=== PATIENT | male | born 1930 | race Caucasian/White ===

== ENCOUNTER 2020-11-26 13:09 | Inpatient (IN) | payer MEDICARE, BC ==
[2020-11-26] MEDS: Sodium Chloride 0.9% 1,000 ML IV SCH (13:15)
[2020-11-26] MEDS ORDERED: Sodium Chloride 0.9% 10 ML Syringe FLUSH PRN (16:51)
--- NOTE | 2020-11-26 19:23 | HP ---
This is an admission history and physical as well as emergency room note. REASON FOR ADMISSION: Frequent falls and deconditioning. HISTORY: This 89-year-old man was brought in by ambulance after having suffered a number of falls over the last 2 days. The patient's history was largely obtained with the assistance of his granddaughter with whom he lives. The patient has significant dementia according to the granddaughter and has been living with the granddaughter and her for quite some time. Evidently over the past several months, he has had increasingly frequent episodes of falling at home, fortunately never sustaining any significant or serious injuries. Recently, however, this seems to have increased somewhat. Two days ago, he suffered a falling incident at home that was witnessed by his granddaughter's and a second similar incident when he was ambulating to the bathroom. There were no apparent injuries at that time, although he spent most of the day lying around with no appetite. This morning shortly after awakening, he was getting dressed and he suffered another fall sustaining a blow to his right eye area and his right hip area. He does have a history of chronic hip pain and it does not seem to be any worse now than it was before the fall. He did not lose any consciousness and denied any pain anywhere else. In fact, but the time he was brought into the emergency room, he was not complaining of any discomfort at all. He has not had any fever or chills. He has not had any increased cough, shortness of breath. Denies any recent episodes of chest pain or abdominal pain, although over the past couple of days, he has had a diminished appetite. There have been no urinary problems with him as of late as well. With regard to his dementia, he has had this for a couple of years at least and has complained on a number of occasions that he just wants to be "let go," etc. The patient does not have any advance directives, but on discussing this with his daughter, she is confident that he would want to be designated as a DNI/DNR status. PAST MEDICAL HISTORY: 1. Pacemaker but no history of [place] that the granddaughter is aware of. 2. History of colon cancer resected 5 to 6 years ago. No known metastasis. 3. History of asthma. He does have inhalers but never uses them. 4. Parkinson disease, which is reasonably well controlled. 5. Hypertension. REVIEW OF SYSTEMS: Pertinent positives and negatives as listed in the HPI. HABITS: He used to drink but no longer drinks alcohol. He has no smoking history. MEDICATIONS: Reviewed. Please see EMR for documentation. PHYSICAL EXAMINATION: He responds reasonably appropriately and there are no complaints of pain at this time. VITAL SIGNS: See EMR. HEENT: He does have periorbital ecchymosis on the right side. There is no subconjunctival hemorrhage. There is no bony crepitus. His periorbital bones appear to be intact. There is no tenderness or bony crepitus in any of his facial bones. His occlusion appears normal. Pupils are equally round, reactive to light. Oropharynx, he has very poor oral dentition. It is not particularly dry. NECK: Supple. No JVD is noted. No tenderness. No crepitus. CHEST: Clear to auscultation with good air exchange bilaterally. No rhonchi, rales, or wheezes. CARDIAC: Regular rate without murmur. ABDOMEN: Obese. He has some ecchymoses that seem to be old around his periumbilical area. This could be due to recent falls. ABDOMEN: Soft and nontender. No hepatosplenomegaly. No palpable masses. I cannot definitely detect a fluid wave or any signs of ascites. EXTREMITIES: He has normal range of motion with no deformities. There is no external evidence of trauma. His foot pulses are absent, but his feet are pink and warm. He does have popliteal pulses. NEUROLOGIC: He follows directions. Deep tendon reflexes were not tested. Cranial nerves 2 through 12 appear to be intact. LABORATORY RESULTS: CBC indicates he has a hemoglobin of 13.9 with a WBC of 4.7. CMP reveals no electrolyte abnormalities. His creatinine is elevated at 1.35 with a BUN of 23. His estimated GFR is 50. His glucose is 110 (nonfasting). His AST is mildly elevated at 59, but his ALT is normal as is his alkaline phosphatase and total bilirubin. Urinalysis suggests dehydration with a specific gravity of 1.030. He does have proteinuria and some ketones in his urine, probably due to fasting. Microscopic UA is pending at this time. Chest x-ray shows no cardiomegaly, no active pulmonary disease. IMPRESSION: 1. Probably generalized weakness due to his age and overall debility complicated by his Parkinson disease and deconditioning. 2. Mild dehydration. 3. Rule out urosepsis. Complete UA pending at this time. PLAN: A long discussion was undertaken with his granddaughter who is his caregiver and it was probably in my opinion, most sensible to admit him to the hospital with comfort measures and treat any UTI if that should materialize on his UA. Otherwise, the main focus will be to find a more suitable housing arrangement for him as it is obvious that this is becoming difficult for them to care for him in their home. We will ask [employer] to assist us in finding appropriate placement. All questions were answered. She understands and agrees to this plan. URBAN/GABY
[2020-11-26] MEDS: Lisinopril 5 MG Tab PO SCH (19:30)
[2020-11-26] MEDS ORDERED: Haloperidol Lactate 5 MG/ML SDV ONE (20:13)
[2020-11-26] MEDS ORDERED: Haloperidol Lactate 5 MG/ML SDV IM ONE (20:13)
[2020-11-27] MEDS: Donepezil 5 MG Tab PO SCH ×2 (07:19→22:23)
[2020-11-27] MEDS: Carbidopa/Levodopa 50-200 MG Tab.ER PO SCH ×3 (07:20→22:23)
[2020-11-27] MEDS: Pantoprazole 40 MG Delayed-Release Granules 1 Packet PO SCH ×2 (07:21→22:24)
[2020-11-27] MEDS: Lisinopril 5 MG Tab PO SCH (08:18)
[2020-11-27] MEDS: Potassium Chloride 10 MEQ Tab.ER PO SCH (08:18)
[2020-11-27] MEDS: Citalopram 20 MG Tab PO SCH (08:19)
[2020-11-27] MEDS ORDERED: Lisinopril 10 MG Tab ONE (08:55)
--- NOTE | 2020-11-27 08:57 | PCM.PN ---
- General Info Date of Service: 11/29/20 - Patient Data Vitals - Most Recent: Last Vital Signs Temp 99.2 F 11/26/20 16:19 Pulse 81 11/27/20 00:00 Resp 17 11/27/20 00:00 BP 155/67 H 11/27/20 08:18 Pulse Ox 96 11/27/20 00:00 Weight - Most Recent: 176 lb I&O - Last 24 Hours: Intake & Output 11/26/20 11/27/20 11/27/20 22:59 06:59 14:59 Intake Total 20 Output Total 15 Balance 5 Lab Results Last 24 Hours: Laboratory Results - last 24 hr 11/26/20 11/26/20 11/26/20 Range/Units 14:40 14:40 14:45 WBC 4.7 (4.0-11.0) K/uL RBC 4.00 L (4.50-6.50) M/uL Hgb 13.9 (13.0-18.0) g/dL Hct 41.4 (40.0-54.0) % MCV 104 H (76-96) fL MCH 34.8 H (27.0-32.0) pg MCHC 33.6 (31.0-35.0) g/dL RDW 13.8 (11.0-16.0) % Plt Count 117 L (150-400) K/uL MPV 10.4 H (6.0-10.0) fL Neut % (Auto) 72.2 H (45.0-70.0) % Lymph % (Auto) 10.0 L (20.0-40.0) % Levy % (Auto) 17.0 H (3.0-10.0) % Eos % (Auto) 0.2 L (1.0-5.0) % Baso % (Auto) 0.6 H (0.0-0.5) % Neut # (Auto) 3.40 (2.00-7.50) K/uL Lymph # (Auto) 0.47 L (1.50-4.00) K/uL Levy # (Auto) 0.80 (0.20-0.80) K/uL Eos # (Auto) 0.01 L (0.04-0.40) K/uL Baso # (Auto) 0.03 (0.02-0.10) K/uL Sodium 138 (136-145) mmol/L Potassium 4.0 (3.5-5.1) mmol/L Chloride 104 (98-107) mmol/L Carbon Dioxide 27.8 (21.0-32.0) mmol/L Anion Gap 10.2 (5.0-15.0) mmol/L BUN 23 (8-26) mg/dL Creatinine 1.35 H (0.70-1.30) mg/dL Est Cr Clr Drug Dosing TNP Estimated GFR (MDRD) 50 L (>60) MLS/MIN BUN/Creatinine Ratio 17.0 (6-25) Glucose 110 H (74-100) mg/dL Calcium 8.9 (8.5-10.1) mg/dL Total Bilirubin 0.6 (0.0-1.0) mg/dL AST 59 H (15-37) U/L ALT 39 (12-78) U/L Alkaline Phosphatase 67 (46-116) U/L Total Protein 6.8 (6.4-8.2) g/dL Albumin 3.3 L (3.4-5.0) g/dL Globulin 3.5 (2.2-4.2) g/dL Albumin/Globulin Ratio 0.9 (0.8-2.0) Urine Color Urine Appearance (CLEAR) Urine pH (5.0-8.0) Ur Specific [place] (1.003-1.030) Urine Protein (NEGATIVE) mg/dL Urine Glucose (UA) (NEGATIVE) mg/dL Urine Ketones (NEGATIVE) mg/dL Urine Occult Blood (NEGATIVE) Urine Nitrite (NEGATIVE) Urine Bilirubin (NEGATIVE) Urine Urobilinogen (0.2-1.0) E.U./dL Ur Leukocyte Esterase (NEGATIVE) U Hyaline Cast (Auto) /HPF Urine RBC /HPF Urine WBC /HPF Ur Epithelial Cells /HPF Fine Granular Casts /HPF SARS-CoV-2 RNA ([place]) Positive H (NEGATIVE) 11/26/20 Range/Units 15:14 WBC (4.0-11.0) K/uL RBC (4.50-6.50) M/uL Hgb (13.0-18.0) g/dL Hct (40.0-54.0) % MCV (76-96) fL MCH (27.0-32.0) pg MCHC (31.0-35.0) g/dL RDW (11.0-16.0) % Plt Count (150-400) K/uL MPV (6.0-10.0) fL Neut % (Auto) (45.0-70.0) % Lymph % (Auto) (20.0-40.0) % Levy % (Auto) (3.0-10.0) % Eos % (Auto) (1.0-5.0) % Baso % (Auto) (0.0-0.5) % Neut # (Auto) (2.00-7.50) K/uL Lymph # (Auto) (1.50-4.00) K/uL Levy # (Auto) (0.20-0.80) K/uL Eos # (Auto) (0.04-0.40) K/uL Baso # (Auto) (0.02-0.10) K/uL Sodium (136-145) mmol/L Potassium (3.5-5.1) mmol/L Chloride (98-107) mmol/L Carbon Dioxide (21.0-32.0) mmol/L Anion Gap (5.0-15.0) mmol/L BUN (8-26) mg/dL Creatinine (0.70-1.30) mg/dL Est Cr Clr Drug Dosing Estimated GFR (MDRD) (>60) MLS/MIN BUN/Creatinine Ratio (6-25) Glucose (74-100) mg/dL Calcium (8.5-10.1) mg/dL Total Bilirubin (0.0-1.0) mg/dL AST (15-37) U/L ALT (12-78) U/L Alkaline Phosphatase (46-116) U/L Total Protein (6.4-8.2) g/dL Albumin (3.4-5.0) g/dL Globulin (2.2-4.2) g/dL Albumin/Globulin Ratio (0.8-2.0) Urine Color Yellow Urine Appearance Slightly cloudy (CLEAR) Urine pH 5.0 (5.0-8.0) Ur Specific [place] >= 1.030 (1.003-1.030) Urine Protein 30 H (NEGATIVE) mg/dL Urine Glucose (UA) Negative (NEGATIVE) mg/dL Urine Ketones 40 H (NEGATIVE) mg/dL Urine Occult Blood Moderate H (NEGATIVE) Urine Nitrite Negative (NEGATIVE) Urine Bilirubin Small H (NEGATIVE) Urine Urobilinogen 0.2 (0.2-1.0) E.U./dL Ur Leukocyte Esterase Negative (NEGATIVE) U Hyaline Cast (Auto) Moderate /HPF Urine RBC 0-5 H /HPF Urine WBC Not seen /HPF Ur Epithelial Cells Moderate /HPF Fine Granular Casts Few H /HPF SARS-CoV-2 RNA ([place]) (NEGATIVE) Med Orders - Current: Current Medications Carbidopa/Levodopa (Carbidopa/Levodopa 50-200 Mg Tab.Er) 1 tab PO BID [facility] Last Admin: 11/27/20 08:19 Dose: 1 tab Documented by: Citalopram Hydrobromide (Citalopram 20 Mg Tab) 40 mg PO DAILY [facility] Last Admin: 11/27/20 08:19 Dose: 40 mg Documented by: Donepezil HCl (Donepezil 5 Mg Tab) 5 mg PO BEDTIME [facility] Last Admin: 11/27/20 07:19 Dose: Not Given Documented by: Sodium Chloride (Normal Saline) 1,000 mls @ 75 mls/hr IV ASDIRECTED [facility] Last Infusion: 11/26/20 19:00 Dose: Infused Documented by: Lisinopril (Lisinopril 5 Mg Tab) 12.5 mg PO DAILY [facility] Last Admin: 11/27/20 08:18 Dose: 12.5 mg Documented by: Pantoprazole Sodium (Pantoprazole 40 Mg Delayed-Release Granules 1 Packet) 40 mg PO Q24H [facility] Last Admin: 11/27/20 07:21 Dose: Not Given Documented by: Potassium Chloride (Potassium Chloride 10 Meq Tab.Er) 10 meq PO DAILY [facility] Last Admin: 11/27/20 08:18 Dose: 10 meq Documented by: Sodium Chloride (Sodium Chloride 0.9% 10 Ml Syringe) 10 ml FLUSH ASDIRECTED PRN PRN Reason: Keep Vein Open Tamsulosin HCl (Tamsulosin 0.4 Mg Cap.Er) 0.4 mg PO PCBREAKFAST [facility] Discontinued Medications Haloperidol Lactate (Haloperidol Lactate 5 Mg/Ml Sdv) Confirm Administered Dose 5 mg .ROUTE .STK-MED ONE Stop: 11/26/20 20:14 Last Admin: 11/26/20 20:15 Dose: 5 mg Documented by: Haloperidol Lactate (Haloperidol Lactate 5 Mg/Ml Sdv) 5 mg IM ONETIME ONE Stop: 11/26/20 20:14 Last Admin: 11/26/20 20:20 Dose: 5 mg Documented by: - Patient Data Lab Results Last 24 hrs: Laboratory Results - last 24 hr 11/26/20 11/26/20 11/26/20 Range/Units 14:40 14:40 14:45 WBC 4.7 (4.0-11.0) K/uL RBC 4.00 L (4.50-6.50) M/uL Hgb 13.9 (13.0-18.0) g/dL Hct 41.4 (40.0-54.0) % MCV 104 H (76-96) fL MCH 34.8 H (27.0-32.0) pg MCHC 33.6 (31.0-35.0) g/dL RDW 13.8 (11.0-16.0) % Plt Count 117 L (150-400) K/uL MPV 10.4 H (6.0-10.0) fL Neut % (Auto) 72.2 H (45.0-70.0) % Lymph % (Auto) 10.0 L (20.0-40.0) % Levy % (Auto) 17.0 H (3.0-10.0) % Eos % (Auto) 0.2 L (1.0-5.0) % Baso % (Auto) 0.6 H (0.0-0.5) % Neut # (Auto) 3.40 (2.00-7.50) K/uL Lymph # (Auto) 0.47 L (1.50-4.00) K/uL Levy # (Auto) 0.80 (0.20-0.80) K/uL Eos # (Auto) 0.01 L (0.04-0.40) K/uL Baso # (Auto) 0.03 (0.02-0.10) K/uL Sodium 138 (136-145) mmol/L Potassium 4.0 (3.5-5.1) mmol/L Chloride 104 (98-107) mmol/L Carbon Dioxide 27.8 (21.0-32.0) mmol/L Anion Gap 10.2 (5.0-15.0) mmol/L BUN 23 (8-26) mg/dL Creatinine 1.35 H (0.70-1.30) mg/dL Est Cr Clr Drug Dosing TNP Estimated GFR (MDRD) 50 L (>60) MLS/MIN BUN/Creatinine Ratio 17.0 (6-25) Glucose 110 H (74-100) mg/dL Calcium 8.9 (8.5-10.1) mg/dL Total Bilirubin 0.6 (0.0-1.0) mg/dL AST 59 H (15-37) U/L ALT 39 (12-78) U/L Alkaline Phosphatase 67 (46-116) U/L Total Protein 6.8 (6.4-8.2) g/dL Albumin 3.3 L (3.4-5.0) g/dL Globulin 3.5 (2.2-4.2) g/dL Albumin/Globulin Ratio 0.9 (0.8-2.0) Urine Color Urine Appearance (CLEAR) Urine pH (5.0-8.0) Ur Specific [place] (1.003-1.030) Urine Protein (NEGATIVE) mg/dL Urine Glucose (UA) (NEGATIVE) mg/dL Urine Ketones (NEGATIVE) mg/dL Urine Occult Blood (NEGATIVE) Urine Nitrite (NEGATIVE) Urine Bilirubin (NEGATIVE) Urine Urobilinogen (0.2-1.0) E.U./dL Ur Leukocyte Esterase (NEGATIVE) U Hyaline Cast (Auto) /HPF Urine RBC /HPF Urine WBC /HPF Ur Epithelial Cells /HPF Fine Granular Casts /HPF SARS-CoV-2 RNA ([place]) Positive H (NEGATIVE) 11/26/20 Range/Units 15:14 WBC (4.0-11.0) K/uL RBC (4.50-6.50) M/uL Hgb (13.0-18.0) g/dL Hct (40.0-54.0) % MCV (76-96) fL MCH (27.0-32.0) pg MCHC (31.0-35.0) g/dL RDW (11.0-16.0) % Plt Count (150-400) K/uL MPV (6.0-10.0) fL Neut % (Auto) (45.0-70.0) % Lymph % (Auto) (20.0-40.0) % Levy % (Auto) (3.0-10.0) % Eos % (Auto) (1.0-5.0) % Baso % (Auto) (0.0-0.5) % Neut # (Auto) (2.00-7.50) K/uL Lymph # (Auto) (1.50-4.00) K/uL Levy # (Auto) (0.20-0.80) K/uL Eos # (Auto) (0.04-0.40) K/uL Baso # (Auto) (0.02-0.10) K/uL Sodium (136-145) mmol/L Potassium (3.5-5.1) mmol/L Chloride (98-107) mmol/L Carbon Dioxide (21.0-32.0) mmol/L Anion Gap (5.0-15.0) mmol/L BUN (8-26) mg/dL Creatinine (0.70-1.30) mg/dL Est Cr Clr Drug Dosing Estimated GFR (MDRD) (>60) MLS/MIN BUN/Creatinine Ratio (6-25) Glucose (74-100) mg/dL Calcium (8.5-10.1) mg/dL Total Bilirubin (0.0-1.0) mg/dL AST (15-37) U/L ALT (12-78) U/L Alkaline Phosphatase (46-116) U/L Total Protein (6.4-8.2) g/dL Albumin (3.4-5.0) g/dL Globulin (2.2-4.2) g/dL Albumin/Globulin Ratio (0.8-2.0) Urine Color Yellow Urine Appearance Slightly cloudy (CLEAR) Urine pH 5.0 (5.0-8.0) Ur Specific [place] >= 1.030 (1.003-1.030) Urine Protein 30 H (NEGATIVE) mg/dL Urine Glucose (UA) Negative (NEGATIVE) mg/dL Urine Ketones 40 H (NEGATIVE) mg/dL Urine Occult Blood Moderate H (NEGATIVE) Urine Nitrite Negative (NEGATIVE) Urine Bilirubin Small H (NEGATIVE) Urine Urobilinogen 0.2 (0.2-1.0) E.U./dL Ur Leukocyte Esterase Negative (NEGATIVE) U Hyaline Cast (Auto) Moderate /HPF Urine RBC 0-5 H /HPF Urine WBC Not seen /HPF Ur Epithelial Cells Moderate /HPF Fine Granular Casts Few H /HPF SARS-CoV-2 RNA ([place]) (NEGATIVE) Result Diagrams: 11/30/20 19:20 11/26/20 14:40 Sepsis Event Note - Evaluation Sepsis Screening Result: No Definite Risk - Focused Exam Vital Signs: Vital Signs Pulse Resp BP BP Pulse Ox 11/27/20 08:18 155/67 H 11/27/20 00:00 81 17 146/87 H 96
[2020-11-27] MEDS: Tamsulosin 0.4 MG Cap.ER PO SCH (09:03)
[2020-11-27] MEDS ORDERED: REMDESIVIR 200 MG in Sodium Chloride 0.9% 250 ML IV ONE (09:35)
--- NOTE | 2020-11-27 09:39 | CR ---
DATE OF SERVICE: 11/26/20 CLINICAL DATA: fall AP CHEST: Comparison is made to a prior exam dated 05/27/12. The patient has taken a poor inspiration. The heart size is normal. The aorta is calcified and ectatic. The lungs are clear. No pneumothorax. No pleural effusions. There is degenerative disc disease throughout the thoracic spine. No evidence of acute intrathoracic disease. [id number] [facility]
--- NOTE | 2020-11-27 12:05 | PN ---
DATE OF VISIT: 11/27/2020 HISTORY OF PRESENT ILLNESS: Mr. Jauregui had a relatively uneventful night. Because of his increased frequent falling episodes and the inability for his granddaughter to continue caring for him, he was admitted to the hospital. In the course of his evaluation, a routine COVID screening was done even though he had no COVID symptoms and this came back positive. He has had a stable night. His blood pressure is stable 155/67, heart rate runs in the 70s and 80s. His O2 sats have ranged between 95 to 96 on room air. His mental status is unchanged from his baseline. He does have dementia. He knows his date. He knows he is in the hospital, but does not know where. He offers no complaints today except that he is anxious to get back home. PHYSICAL EXAMINATION: GENERAL: He has the ecchymoses around his right periorbital area that is unchanged. NEURO: He moves all 4 extremities to command. CHEST: Clear. CARDIAC: Regular rate without murmur. ABDOMEN: Soft. IMPRESSION: 1. Frequent falls. 2. Dementia. 3. Recent COVID-19 positive. PLAN: I am going to go ahead and start him on remdesivir 200 mg IV today and 100 mg IV daily for the next 4 days. We will check his liver enzymes as per protocol. He has had some mild coughing and this has not changed in quite some time. He has not been vaccinated. It should be reiterated that his granddaughter, who has provided his care, has indicated that comfort measures are the main concern for the family and informed us that his status should be DNI/DNR. At the present time, with him testing positive for COVID, and we have begun to get [employer] involved so that we can find a suitable [facility] facility, but his COVID status will hinder us from doing this in a very timely fashion. URBAN/GABY /[id number]
[2020-11-27] MEDS ORDERED: Carbidopa/Levodopa 50-200 MG Tab.ER ONE (21:39)
[2020-11-28] MEDS ORDERED: Acetaminophen 325 MG Tab ONE (00:38)
[2020-11-28] MEDS: Acetaminophen 325 MG Tab PO PRN (00:50)
[2020-11-28] MEDS: Lisinopril 5 MG Tab PO SCH (07:56)
[2020-11-28] MEDS: Carbidopa/Levodopa 50-200 MG Tab.ER PO SCH ×2 (07:56→20:50)
[2020-11-28] MEDS: Potassium Chloride 10 MEQ Tab.ER PO SCH (07:57)
[2020-11-28] MEDS: Citalopram 20 MG Tab PO SCH (07:57)
[2020-11-28] MEDS: Tamsulosin 0.4 MG Cap.ER PO SCH (09:56)
[2020-11-28] MEDS: REMDESIVIR 100 MG in Sodium Chloride 0.9% 100 ML IV SCH (09:57)
--- NOTE | 2020-11-28 12:53 | PN ---
DATE OF VISIT: 11/28/2020 Shad had a very low-grade temperature elevation to 99.5 last night. Otherwise, he remained stable. He was having trouble yesterday, but after he tugged on his Rodrigues catheter, which stirred up some bleeding in his catheter, this required some irrigation, and he has not had any episodes where he has tried to pull out his Rodrigues catheter since. He has the haloperidol ordered on a p.r.n. basis, but has not required any for the last 24 hours or so. He denies any shortness of breath. He does have a mild chronic cough, which does not appear to have changed. He has no GI symptoms and his appetite is good. This will be his third day of remdesivir and he should receive a total of 5 days of remdesivir, which means his last day will be on Friday. I have elected not to start him on dexamethasone because he has no respiratory symptoms. A discussion was undertaken with the nursing staff regarding the need to be forward looking in terms of [facility] placement as the granddaughter and grandson are probably not going to be able to provide adequate safe care for him going forward. URBAN/GABY /[id number]
[2020-11-28] MEDS: Sodium Chloride 0.9% 1,000 ML IV SCH (16:51)
[2020-11-28] MEDS: Donepezil 5 MG Tab PO SCH (20:50)
[2020-11-28] MEDS ORDERED: Haloperidol Lactate 5 MG/ML SDV IM ONE (23:50)
[2020-11-28] MEDS ORDERED: Haloperidol Lactate 5 MG/ML SDV ONE (23:58)
[2020-11-29] MEDS: Pantoprazole 40 MG Delayed-Release Granules 1 Packet PO SCH (06:56)
[2020-11-29] MEDS: Tamsulosin 0.4 MG Cap.ER PO SCH (09:30)
[2020-11-29] MEDS: Lisinopril 5 MG Tab PO SCH (09:31)
[2020-11-29] MEDS: Citalopram 20 MG Tab PO SCH (09:32)
[2020-11-29] MEDS: Potassium Chloride 10 MEQ Tab.ER PO SCH (09:32)
[2020-11-29] MEDS: Carbidopa/Levodopa 50-200 MG Tab.ER PO SCH ×2 (09:32→19:14)
[2020-11-29] MEDS: REMDESIVIR 100 MG in Sodium Chloride 0.9% 100 ML IV SCH (10:04)
--- NOTE | 2020-11-29 12:05 | PN ---
DATE OF VISIT: 11/29/2020 Mr. Jauregui has had an uneventful past 24 hours. His appetite is good. He is afebrile. He is occasionally coughing, but this is about his baseline. This will be day 4 of remdesivir, so he is scheduled to receive one more dose and he will have completed that. His liver enzymes remain unchanged. His AST was 59 when it was started and it is 83 today. His bilirubin is not elevated. His alkaline phosphatase is stable and his ALT is normal. There are no new changes. We are currently in the process of sorting out a detention arrangement for him. URBAN/GABY /[id number]
[2020-11-29] MEDS: Donepezil 5 MG Tab PO SCH (19:14)
[2020-11-29] MEDS: Acetaminophen 325 MG Tab PO PRN (19:15)
[2020-11-30] MEDS: Carbidopa/Levodopa 50-200 MG Tab.ER PO SCH ×2 (08:04→20:33)
[2020-11-30] MEDS: Citalopram 20 MG Tab PO SCH (08:04)
[2020-11-30] MEDS: Pantoprazole 40 MG Tab.CR PO SCH (08:04)
[2020-11-30] MEDS: Lisinopril 5 MG Tab PO SCH (08:04)
[2020-11-30] MEDS: Potassium Chloride 10 MEQ Tab.ER PO SCH (08:05)
[2020-11-30] MEDS: REMDESIVIR 100 MG in Sodium Chloride 0.9% 100 ML IV SCH (11:15)
[2020-11-30] MEDS: Tamsulosin 0.4 MG Cap.ER PO SCH (11:56)
[2020-11-30] MEDS ORDERED: LORazepam 1 MG Tab PO ONE (14:51)
--- NOTE | 2020-11-30 17:12 | PCM.PN ---
- General Info Date of Service: 11/30/20 Admission Dx/Problem (Free Text): Falls, weakness, COVID Subjective Update: This patient remains hospitalized for weakness with a history of falls at home. On arrival he was noted to be COVID positive. He remains in isolation as a result of that although today is his last day of remdesivir. Throughout the day he has done well; however, he is getting somewhat bored and complaining of some minor pain in his back. He states at a couple of times during the day that he was not able to get comfortable. He does have an indwelling Rodrigues that was plac ed for urinary retention and is complaining to the staff that he feels like he has to urinate. His vital signs have been stable today and he has not had a fever. Functional Status: Reports: Pain Controlled - Review of Systems General: Reports: No Symptoms HEENT: Reports: No Symptoms Pulmonary: Reports: No Symptoms Cardiovascular: Reports: No Symptoms Gastrointestinal: Reports: No Symptoms Genitourinary: Reports: Other (Complaining that he needs to urinate) Skin: Reports: No Symptoms Neurological: Reports: No Symptoms - Patient Data Vitals - Most Recent: Last Vital Signs Temp 37.1 C 11/30/20 12:00 Pulse 105 H 11/30/20 08:00 Resp 18 11/30/20 08:00 BP 174/83 H 11/30/20 08:04 Pulse Ox 95 11/30/20 08:00 Weight - Most Recent: 78.018 kg I&O - Last 24 Hours: Intake & Output 11/30/20 11/30/20 11/30/20 06:59 14:59 22:59 Intake Total 120 200 Output Total 375 100 Balance -255 100 Lab Results Last 24 Hours: Laboratory Results - last 24 hr 11/30/20 Range/Units 12:00 Total Bilirubin 0.6 D (0.0-1.0) mg/dL Direct Bilirubin 0.2 (0.0-0.3) mg/dL Indirect Bilirubin 0.4 (<= 0.7) mg/dL AST 88 H (15-37) U/L ALT 7 L (12-78) U/L Alkaline Phosphatase 67 (46-116) U/L Total Protein 6.9 (6.4-8.2) g/dL Albumin 3.4 (3.4-5.0) g/dL Globulin 3.5 (2.2-4.2) g/dL Albumin/Globulin Ratio 1.0 (0.8-2.0) Med Orders - Current: Current Medications Acetaminophen (Acetaminophen 325 Mg Tab) 325 mg PO Q6H PRN PRN Reason: Fever Last Admin: 11/29/20 19:15 Dose: 650 mg Documented by: Carbidopa/Levodopa (Carbidopa/Levodopa 50-200 Mg Tab.Er) 1 tab PO BID [facility] Last Admin: 11/30/20 08:04 Dose: 1 tab Documented by: Citalopram Hydrobromide (Citalopram 20 Mg Tab) 40 mg PO DAILY [facility] Last Admin: 11/30/20 08:04 Dose: 40 mg Documented by: Donepezil HCl (Donepezil 5 Mg Tab) 5 mg PO BEDTIME [facility] Last Admin: 11/29/20 19:14 Dose: 5 mg Documented by: Sodium Chloride (Normal Saline) 1,000 mls @ 75 mls/hr IV ASDIRECTED [facility] Last Infusion: 11/26/20 19:00 Dose: Infused Documented by: Remdesivir 100 mg/ Sodium (Chloride) 100 mls @ 100 mls/hr IV Q24H [facility] Stop: 12/01/20 10:59 Last Admin: 11/30/20 11:15 Dose: 100 mls/hr Documented by: Lisinopril (Lisinopril 5 Mg Tab) 12.5 mg PO DAILY [facility] Last Admin: 11/30/20 08:04 Dose: 12.5 mg Documented by: Oxybutynin Chloride (Oxybutynin 5 Mg Tab.Er) 5 mg PO BEDTIME [facility] Pantoprazole Sodium (Pantoprazole 40 Mg Tab.Cr) 40 mg PO ACBREAKFAST [facility] Last Admin: 11/30/20 08:04 Dose: 40 mg Documented by: Potassium Chloride (Potassium Chloride 10 Meq Tab.Er) 10 meq PO DAILY [facility] Last Admin: 11/30/20 08:05 Dose: 10 meq Documented by: Sodium Chloride (Sodium Chloride 0.9% 10 Ml Syringe) 10 ml FLUSH ASDIRECTED PRN PRN Reason: Keep Vein Open Tamsulosin HCl (Tamsulosin 0.4 Mg Cap.Er) 0.4 mg PO PCBREAKFAST [facility] Last Admin: 11/30/20 11:56 Dose: 0.4 mg Documented by: Discontinued Medications Acetaminophen (Acetaminophen 325 Mg Tab) Confirm Administered Dose 650 mg .ROUTE .STK-MED ONE Stop: 11/28/20 00:39 Last Admin: 11/28/20 03:49 Dose: Not Given Documented by: Carbidopa/Levodopa (Carbidopa/Levodopa 50-200 Mg Tab.Er) Confirm Administered Dose 1 tab .ROUTE .STK-MED ONE Stop: 11/27/20 21:40 Last Admin: 11/27/20 23:19 Dose: Not Given Documented by: Haloperidol Lactate (Haloperidol Lactate 5 Mg/Ml Sdv) Confirm Administered Dose 5 mg .ROUTE .STK-MED ONE Stop: 11/26/20 20:14 Last Admin: 11/26/20 20:15 Dose: 5 mg Documented by: Haloperidol Lactate (Haloperidol Lactate 5 Mg/Ml Sdv) 5 mg IM ONETIME ONE Stop: 11/26/20 20:14 Last Admin: 11/26/20 20:20 Dose: 5 mg Documented by: Haloperidol Lactate (Haloperidol Lactate 5 Mg/Ml Sdv) Confirm Administered Dose 5 mg .ROUTE .STK-MED ONE Stop: 11/28/20 23:59 Last Admin: 11/29/20 04:24 Dose: Not Given Documented by: Haloperidol Lactate (Haloperidol Lactate 5 Mg/Ml Sdv) 5 mg IM ONETIME ONE Stop: 11/28/20 23:51 Last Admin: 11/28/20 23:59 Dose: 5 mg Documented by: Remdesivir 200 mg/ Sodium (Chloride) 250 mls @ 250 mls/hr IV ONETIME ONE Stop: 11/27/20 09:36 Last Admin: 11/27/20 10:55 Dose: 250 mls/hr Documented by: Lisinopril (Lisinopril 10 Mg Tab) Confirm Administered Dose 10 mg .ROUTE .STK- MED ONE Stop: 11/27/20 08:56 Last Admin: 11/27/20 09:03 Dose: Not Given Documented by: Lorazepam (Lorazepam 1 Mg Tab) 1 mg PO ONETIME ONE Stop: 11/30/20 14:52 Last Admin: 11/30/20 15:33 Dose: 1 mg Documented by: Pantoprazole Sodium (Pantoprazole 40 Mg Delayed-Release Granules 1 Packet) 40 mg PO Q24H [facility] Last Admin: 11/29/20 06:56 Dose: Not Given Documented by: - Exam Urinary Catheter Total Time: 2Days 18Hours General: Alert, Oriented, No Acute Distress HEENT: Pupils Equal, Pupils Reactive Neck: Supple Lungs: Clear to Auscultation, Normal Respiratory Effort Cardiovascular: Regular Rate, Regular Rhythm Extremities: Normal Inspection Skin: Warm, Dry Neurological: No New Focal Deficit Psy/Mental Status: Alert - Patient Data Lab Results Last 24 hrs: Laboratory Results - last 24 hr 11/30/20 Range/Units 12:00 Total Bilirubin 0.6 D (0.0-1.0) mg/dL Direct Bilirubin 0.2 (0.0-0.3) mg/dL Indirect Bilirubin 0.4 (<= 0.7) mg/dL AST 88 H (15-37) U/L ALT 7 L (12-78) U/L Alkaline Phosphatase 67 (46-116) U/L Total Protein 6.9 (6.4-8.2) g/dL Albumin 3.4 (3.4-5.0) g/dL Globulin 3.5 (2.2-4.2) g/dL Albumin/Globulin Ratio 1.0 (0.8-2.0) Result Diagrams: 11/26/20 14:40 11/26/20 14:40 Sepsis Event Note - Evaluation Sepsis Screening Result: No Definite Risk - Focused Exam Vital Signs: Vital Signs Temp Pulse Resp BP BP Pulse Ox 11/30/20 12:00 37.1 C 11/30/20 08:04 174/83 H 11/30/20 08:00 37.2 C 105 H 18 174/83 H 95 - Problem List & Annotations (1) Weakness SNOMED Code(s): 41668655 Code(s): R53.1 - WEAKNESS Status: Acute Priority: High Current Visit: Yes - Problem List Review Problem List Initiated/Reviewed/Updated: Yes - My Orders Last 24 Hours: My Active Orders 11/30/20 07:00 Pantoprazole [ProTONIX] 40 mg PO ACBREAKFAST 11/30/20 10:14 Renew/Continue Urinary Catheter [OM.PC] Routine 11/30/20 13:45 Ready for Discharge [RC] PER UNIT ROUTINE 11/30/20 16:41 UA RFX BARBARA AND CULT IF INDIC [URIN] Stat 11/30/20 20:00 Oxybutynin [Oxybutynin ER] 5 mg PO BEDTIME - Assessment Assessment:: Problems 1. Falls 2. Weakness 3.. Covid positive. Plan This patient has continued to do well without respiratory symptoms or requiring respiratory support. He will finish his remdesivir today and will be changed to swing bed status tomorrow. He will have PT and OT ordered in preparation of snf placement. Continue with current plan of care as previously ordered.
[2020-11-30] MEDS ORDERED: Lisinopril 5 MG Tab PO ONE (17:40)
[2020-11-30] MEDS ORDERED: Carbidopa/Levodopa 50-200 MG Tab.ER PO SCH (20:00)
[2020-11-30] MEDS ORDERED: Citalopram 20 MG Tab PO SCH (20:00)
[2020-11-30] MEDS: diphenhydrAMINE 50 MG Cap PO PRN (20:33)
[2020-11-30] MEDS: Donepezil 5 MG Tab PO SCH (20:33)
[2020-11-30] MEDS: Oxybutynin 5 MG Tab.ER PO SCH (20:33)
[2020-11-30] MEDS: Acetaminophen 325 MG Tab PO PRN (20:33)
[2020-12-01] MEDS: Citalopram 20 MG Tab PO SCH (07:32)
[2020-12-01] MEDS: Potassium Chloride 10 MEQ Tab.ER PO SCH (07:33)
[2020-12-01] MEDS: Pantoprazole 40 MG Tab.CR PO SCH (07:33)
[2020-12-01] MEDS: Carbidopa/Levodopa 50-200 MG Tab.ER PO SCH ×2 (07:33→19:49)
[2020-12-01] MEDS: Lisinopril 5 MG Tab PO SCH (08:23)
[2020-12-01] MEDS: REMDESIVIR 100 MG in Sodium Chloride 0.9% 100 ML IV SCH (09:04)
[2020-12-01] MEDS: Tamsulosin 0.4 MG Cap.ER PO SCH (09:19)
--- NOTE | 2020-12-01 10:24 | CR ---
DATE OF SERVICE: 12/01/20 CLINICAL DATA: increased WOB AP CHEST: Comparison is made to a prior exam dated 11/26/20. The heart size is normal. There is calcification in the region of the mitral valve annulus. There is a small hiatal hernia. There is calcification of the aortic arch. There is increased density in the left lung base consistent with basilar atelectasis or infiltrate. Pneumonia should be considered. The right lung remains clear. No pneumothorax. No pleural effusion. [id number] [facility]
--- NOTE | 2020-12-01 11:09 | PCM.PN ---
- General Info Date of Service: 12/01/20 Admission Dx/Problem (Free Text): Falls, weakness, COVID Subjective Update: This patient has not had increasing cough and respiratory symptoms in the past 24 hours including increased secretions. He has not had a fever. He was a bit more disoriented and actively anxious in the past 24 hours as well. His appetite is fair and he is drinking fluids well. He denies pain. Functional Status: Reports: Pain Controlled - Review of Systems General: Reports: Weakness. Denies: Fever HEENT: Reports: No Symptoms Pulmonary: Reports: Cough, Sputum Cardiovascular: Denies: Chest Pain Gastrointestinal: Denies: Abdominal Pain, Diarrhea, Nausea, Vomiting Genitourinary: Reports: Other (Feels the urge to void despite Rodrigues placement) Musculoskeletal: Reports: No Symptoms Skin: Reports: No Symptoms Neurological: Reports: No Symptoms - Patient Data Vitals - Most Recent: Last Vital Signs Temp 36.9 C 12/01/20 07:59 Pulse 95 12/01/20 07:59 Resp 18 12/01/20 03:23 BP 135/66 12/01/20 08:23 Pulse Ox 94 L 12/01/20 07:59 Weight - Most Recent: 78.018 kg I&O - Last 24 Hours: Intake & Output 11/30/20 12/01/20 12/01/20 22:59 06:59 14:59 Intake Total 200 100 Output Total 125 150 Balance -125 50 100 Lab Results Last 24 Hours: Laboratory Results - last 24 hr 11/30/20 11/30/20 11/30/20 Range/Units 12:00 18:50 19:20 WBC 6.2 D (4.0-11.0) K/uL RBC 4.50 (4.50-6.50) M/uL Hgb 15.4 (13.0-18.0) g/dL Hct 46.1 (40.0-54.0) % MCV 102 H (76-96) fL MCH 34.2 H (27.0-32.0) pg MCHC 33.4 (31.0-35.0) g/dL RDW 13.9 (11.0-16.0) % Plt Count 142 L D (150-400) K/uL MPV 10.2 H (6.0-10.0) fL Neut % (Auto) 75.9 H (45.0-70.0) % Lymph % (Auto) 10.9 L (20.0-40.0) % [place] % (Auto) 12.7 H (3.0-10.0) % Eos % (Auto) 0.0 L (1.0-5.0) % Baso % (Auto) 0.5 (0.0-0.5) % Neut # (Auto) 4.68 (2.00-7.50) K/uL Lymph # (Auto) 0.67 L (1.50-4.00) K/uL [place] # (Auto) 0.78 (0.20-0.80) K/uL Eos # (Auto) 0.00 L (0.04-0.40) K/uL Baso # (Auto) 0.03 (0.02-0.10) K/uL Total Bilirubin 0.6 D (0.0-1.0) mg/dL Direct Bilirubin 0.2 (0.0-0.3) mg/dL Indirect Bilirubin 0.4 (<= 0.7) mg/dL AST 88 H (15-37) U/L ALT 7 L (12-78) U/L Alkaline Phosphatase 67 (46-116) U/L Total Protein 6.9 (6.4-8.2) g/dL Albumin 3.4 (3.4-5.0) g/dL Globulin 3.5 (2.2-4.2) g/dL Albumin/Globulin Ratio 1.0 (0.8-2.0) Urine Color Yellow Urine Appearance Cloudy (CLEAR) Urine pH 5.5 (5.0-8.0) Ur Specific [place] >= 1.030 (1.003-1.030) Urine Protein 100 H (NEGATIVE) mg/dL Urine Glucose (UA) Negative (NEGATIVE) mg/dL Urine Ketones 15 H (NEGATIVE) mg/dL Urine Occult Blood Large H (NEGATIVE) Urine Nitrite Negative (NEGATIVE) Urine Bilirubin Negative (NEGATIVE) Urine Urobilinogen 0.2 (0.2-1.0) E.U./dL Ur Leukocyte Esterase Moderate H (NEGATIVE) Urine RBC >100 H /HPF Urine WBC 75-100 H /HPF Ur Squamous Epith Cells Moderate /HPF Amorphous Sediment Moderate /HPF Urine Bacteria Few /HPF Med Orders - Current: Current Medications Acetaminophen (Acetaminophen 325 Mg Tab) 325 mg PO Q6H PRN PRN Reason: Fever Last Admin: 11/30/20 20:33 Dose: 650 mg Documented by: Carbidopa/Levodopa (Carbidopa/Levodopa 50-200 Mg Tab.Er) 1 tab PO BID [facility] Last Admin: 12/01/20 07:33 Dose: 1 tab Documented by: Citalopram Hydrobromide (Citalopram 20 Mg Tab) 40 mg PO DAILY [facility] Last Admin: 12/01/20 07:32 Dose: 40 mg Documented by: Diphenhydramine HCl (Diphenhydramine 50 Mg Cap) 50 mg PO Q6H PRN PRN Reason: Agitation Last Admin: 11/30/20 20:33 Dose: 50 mg Documented by: Donepezil HCl (Donepezil 5 Mg Tab) 5 mg PO BEDTIME [facility] Last Admin: 11/30/20 20:33 Dose: 5 mg Documented by: Sodium Chloride (Normal Saline) 1,000 mls @ 75 mls/hr IV ASDIRECTED [facility] Last Infusion: 11/26/20 19:00 Dose: Infused Documented by: Azithromycin 500 mg/ Sodium (Chloride) 250 mls @ 250 mls/hr IV Q24H [facility] Stop: 12/08/20 12:00 Levofloxacin/Dextrose 750 mg/ (Levofloxacin/Dextrose) 300 mls @ 100 mls/hr IV Q24H [facility] Stop: 12/08/20 12:00 Lisinopril (Lisinopril 5 Mg Tab) 15 mg PO DAILY [facility] Last Admin: 12/01/20 08:23 Dose: 15 mg Documented by: Methylprednisolone Sodium Succinate (Methylprednisolone Sodium Succinate 125 Mg/2 Ml Sdv) 125 mg IVPUSH Q6H [facility] Oxybutynin Chloride (Oxybutynin 5 Mg Tab.Er) 5 mg PO BEDTIME [facility] Last Admin: 11/30/20 20:33 Dose: 5 mg Documented by: Pantoprazole Sodium (Pantoprazole 40 Mg Tab.Cr) 40 mg PO ACBREAKFAST [facility] Last Admin: 12/01/20 07:33 Dose: 40 mg Documented by: Potassium Chloride (Potassium Chloride 10 Meq Tab.Er) 10 meq PO DAILY [facility] Last Admin: 12/01/20 07:33 Dose: 10 meq Documented by: Sodium Chloride (Sodium Chloride 0.9% 10 Ml Syringe) 10 ml FLUSH ASDIRECTED PRN PRN Reason: Keep Vein Open Tamsulosin HCl (Tamsulosin 0.4 Mg Cap.Er) 0.4 mg PO PCBREAKFAST [facility] Last Admin: 12/01/20 09:19 Dose: 0.4 mg Documented by: Discontinued Medications Acetaminophen (Acetaminophen 325 Mg Tab) Confirm Administered Dose 650 mg .ROUTE .STK-MED ONE Stop: 11/28/20 00:39 Last Admin: 11/28/20 03:49 Dose: Not Given Documented by: Carbidopa/Levodopa (Carbidopa/Levodopa 50-200 Mg Tab.Er) Confirm Administered Dose 1 tab .ROUTE .STK-MED ONE Stop: 11/27/20 21:40 Last Admin: 11/27/20 23:19 Dose: Not Given Documented by: Cefuroxime Axetil (Cefuroxime 500 Mg Tab) 500 mg PO BID [facility] Stop: 12/07/20 22:00 Last Admin: 12/01/20 07:33 Dose: 500 mg Documented by: Haloperidol Lactate (Haloperidol Lactate 5 Mg/Ml Sdv) Confirm Administered Dose 5 mg .ROUTE .STK-MED ONE Stop: 11/26/20 20:14 Last Admin: 11/26/20 20:15 Dose: 5 mg Documented by: Haloperidol Lactate (Haloperidol Lactate 5 Mg/Ml Sdv) 5 mg IM ONETIME ONE Stop: 11/26/20 20:14 Last Admin: 11/26/20 20:20 Dose: 5 mg Documented by: Haloperidol Lactate (Haloperidol Lactate 5 Mg/Ml Sdv) Confirm Administered Dose 5 mg .ROUTE .STK-MED ONE Stop: 11/28/20 23:59 Last Admin: 11/29/20 04:24 Dose: Not Given Documented by: Haloperidol Lactate (Haloperidol Lactate 5 Mg/Ml Sdv) 5 mg IM ONETIME ONE Stop: 11/28/20 23:51 Last Admin: 11/28/20 23:59 Dose: 5 mg Documented by: Remdesivir 200 mg/ Sodium (Chloride) 250 mls @ 250 mls/hr IV ONETIME ONE Stop: 11/27/20 09:36 Last Admin: 11/27/20 10:55 Dose: 250 mls/hr Documented by: Remdesivir 100 mg/ Sodium (Chloride) 100 mls @ 100 mls/hr IV Q24H [facility] Stop: 12/01/20 10:59 Last Admin: 12/01/20 09:04 Dose: 100 mls/hr Documented by: Lisinopril (Lisinopril 5 Mg Tab) 12.5 mg PO DAILY [facility] Last Admin: 11/30/20 08:04 Dose: 12.5 mg Documented by: Lisinopril (Lisinopril 10 Mg Tab) Confirm Administered Dose 10 mg .ROUTE .STK- MED ONE Stop: 11/27/20 08:56 Last Admin: 11/27/20 09:03 Dose: Not Given Documented by: Lisinopril (Lisinopril 5 Mg Tab) 5 mg PO ONETIME ONE Stop: 11/30/20 17:41 Last Admin: 11/30/20 18:32 Dose: 5 mg Documented by: Lorazepam (Lorazepam 1 Mg Tab) 1 mg PO ONETIME ONE Stop: 11/30/20 14:52 Last Admin: 11/30/20 15:33 Dose: 1 mg Documented by: Pantoprazole Sodium (Pantoprazole 40 Mg Delayed-Release Granules 1 Packet) 40 mg PO Q24H [facility] Last Admin: 11/29/20 06:56 Dose: Not Given Documented by: - Exam Quality Assessment: Urine Catheter Urinary Catheter Total Time: 2Days 18Hours General: Alert, Cooperative, No Acute Distress HEENT: Pupils Equal, Pupils Reactive, Mucous Membr. Moist/[place] Neck: Supple Lungs: Decreased Breath Sounds (Bilateral bases), Rales (All lung nixon) Cardiovascular: Regular Rate, Regular Rhythm Extremities: Normal Inspection, No Pedal Edema Skin: Warm, Dry Neurological: No New Focal Deficit Psy/Mental Status: Alert - Patient Data Lab Results Last 24 hrs: Laboratory Results - last 24 hr 11/30/20 11/30/20 11/30/20 Range/Units 12:00 18:50 19:20 WBC 6.2 D (4.0-11.0) K/uL RBC 4.50 (4.50-6.50) M/uL Hgb 15.4 (13.0-18.0) g/dL Hct 46.1 (40.0-54.0) % MCV 102 H (76-96) fL MCH 34.2 H (27.0-32.0) pg MCHC 33.4 (31.0-35.0) g/dL RDW 13.9 (11.0-16.0) % Plt Count 142 L D (150-400) K/uL MPV 10.2 H (6.0-10.0) fL Neut % (Auto) 75.9 H (45.0-70.0) % Lymph % (Auto) 10.9 L (20.0-40.0) % [place]y % (Auto) 12.7 H (3.0-10.0) % Eos % (Auto) 0.0 L (1.0-5.0) % Baso % (Auto) 0.5 (0.0-0.5) % Neut # (Auto) 4.68 (2.00-7.50) K/uL Lymph # (Auto) 0.67 L (1.50-4.00) K/uL [place] # (Auto) 0.78 (0.20-0.80) K/uL Eos # (Auto) 0.00 L (0.04-0.40) K/uL Baso # (Auto) 0.03 (0.02-0.10) K/uL Total Bilirubin 0.6 D (0.0-1.0) mg/dL Direct Bilirubin 0.2 (0.0-0.3) mg/dL Indirect Bilirubin 0.4 (<= 0.7) mg/dL AST 88 H (15-37) U/L ALT 7 L (12-78) U/L Alkaline Phosphatase 67 (46-116) U/L Total Protein 6.9 (6.4-8.2) g/dL Albumin 3.4 (3.4-5.0) g/dL Globulin 3.5 (2.2-4.2) g/dL Albumin/Globulin Ratio 1.0 (0.8-2.0) Urine Color Yellow Urine Appearance Cloudy (CLEAR) Urine pH 5.5 (5.0-8.0) Ur Specific [place] >= 1.030 (1.003-1.030) Urine Protein 100 H (NEGATIVE) mg/dL Urine Glucose (UA) Negative (NEGATIVE) mg/dL Urine Ketones 15 H (NEGATIVE) mg/dL Urine Occult Blood Large H (NEGATIVE) Urine Nitrite Negative (NEGATIVE) Urine Bilirubin Negative (NEGATIVE) Urine Urobilinogen 0.2 (0.2-1.0) E.U./dL Ur Leukocyte Esterase Moderate H (NEGATIVE) Urine RBC >100 H /HPF Urine WBC 75-100 H /HPF Ur Squamous Epith Cells Moderate /HPF Amorphous Sediment Moderate /HPF Urine Bacteria Few /HPF Result Diagrams: 11/30/20 19:20 11/26/20 14:40 Sepsis Event Note - Evaluation Sepsis Screening Result: Possible Sepsis Risk - Focused Exam Vital Signs: Vital Signs Temp Temp Temp Pulse Resp BP BP 12/01/20 08:23 135/66 12/01/20 07:59 36.9 C 95 135/66 12/01/20 03:23 36.9 C 93 18 149/65 H 12/01/20 00:00 36.4 C 90 Pulse Ox 12/01/20 08:23 12/01/20 07:59 94 L 12/01/20 03:23 93 L 12/01/20 00:00 - Problem List & Annotations (1) Weakness SNOMED Code(s): 17759528 Code(s): R53.1 - WEAKNESS Status: Acute Priority: High Current Visit: Yes - Problem List Review Problem List Initiated/Reviewed/Updated: Yes - My Orders Last 24 Hours: My Active Orders 11/30/20 10:14 Renew/Continue Urinary Catheter [OM.PC] Routine 11/30/20 13:45 Ready for Discharge [RC] PER UNIT ROUTINE 11/30/20 18:28 diphenhydrAMINE [Benadryl] 50 mg PO Q6H PRN 11/30/20 18:50 CULTURE URINE [RM] Stat 11/30/20 19:20 CULTURE BLOOD [BC] Routine 11/30/20 20:00 Oxybutynin [Oxybutynin ER] 5 mg PO BEDTIME 12/01/20 08:00 lisinopriL [Prinivil] 15 mg PO DAILY 12/01/20 11:00 Azithromycin [Zithromax] 500 mg Sodium Chloride 0.9% [Normal Saline (AdvBag)] 250 ml IV Q24H 12/01/20 11:15 Levofloxacin/Dextrose 5%-Water [Levaquin in D5W 750 MG/150 ML] 750 mg Levofloxacin/Dextrose 5%-Water [Levaquin in D5W 750 MG/150 ML] 150 ml IV Q24H methylPREDNISolone Sod Succ [Solu-MEDROL] 125 mg IVPUSH Q6H - Assessment Assessment:: Problems 1. Falls 2. Weakness 3. Covid positive. 4. UTI 5. Pneumonia - Plan Plan:: Falls and Weakness Patient will continue to work with physical therapy and nursing to strengthen in preparation for discharge. Covid positive; Pneumonia Patient continues on remdesivir IV. Chest x-ray obtained this morning does reveal a new pneumonia. He will be started on IV Zithromax and Levaquin. He will also be also be started on IV Solu-Medrol Medrol. UTI Patient was started on oral cefuroxime last evening in regards to a positive urine. This was DC'd related to his creatinine clearance. Given his other IV antibiotic requirements I will not be initiating a new antibiotic for this.
[2020-12-01] MEDS ORDERED: Levofloxacin/Dextrose 5%-Water 750 MG in Levofloxacin/Dextrose 5%-Water 150 ML IV SCH (11:15)
[2020-12-01] MEDS: Azithromycin 500 MG in Sodium Chloride 0.9% 250 ML IV SCH (11:44)
[2020-12-01] MEDS: methylPREDNISolone Sodium Succinate 125 MG/2 ML SDV IVPUSH SCH ×3 (11:44→23:46)
[2020-12-01] MEDS ORDERED: Levofloxacin/Dextrose 5%-Water 150 ML IV ONE (12:20)
[2020-12-01] MEDS: Levofloxacin/Dextrose 5%-Water 750 MG in Levofloxacin/Dextrose 5%-Water 150 ML IV SCH (12:40)
[2020-12-01] MEDS: Acetaminophen 325 MG Tab PO PRN (16:00)
[2020-12-01] MEDS: Donepezil 5 MG Tab PO SCH (19:48)
[2020-12-01] MEDS: Oxybutynin 5 MG Tab.ER PO SCH (19:48)
[2020-12-01] MEDS: diphenhydrAMINE 50 MG Cap PO PRN (21:48)
[2020-12-02] MEDS: Acetaminophen 325 MG Tab PO PRN ×4 (00:52→19:49)
[2020-12-02] MEDS: Pantoprazole 40 MG Tab.CR PO SCH (06:00)
[2020-12-02] MEDS: methylPREDNISolone Sodium Succinate 125 MG/2 ML SDV IVPUSH SCH ×3 (06:00→18:21)
[2020-12-02] MEDS: Carbidopa/Levodopa 50-200 MG Tab.ER PO SCH ×2 (07:56→19:49)
[2020-12-02] MEDS: Citalopram 20 MG Tab PO SCH (07:56)
[2020-12-02] MEDS: Potassium Chloride 10 MEQ Tab.ER PO SCH (07:56)
[2020-12-02] MEDS: Lisinopril 5 MG Tab PO SCH (08:42)
[2020-12-02] MEDS: Tamsulosin 0.4 MG Cap.ER PO SCH ×2 (09:52→13:25)
[2020-12-02] MEDS: Azithromycin 500 MG in Sodium Chloride 0.9% 250 ML IV SCH (10:48)
--- NOTE | 2020-12-02 10:53 | PCM.PN ---
- General Info Date of Service: 12/02/20 Admission Dx/Problem (Free Text): Falls, weakness, COVID Subjective Update: This patient is doing some better this morning with improved aeration and dec reased work of breathing, decreased agitation, and no complaints of pain. Vital signs of been stable, he has not had a fever. His appetite is improving and he is drinking fluids fairly well. Functional Status: Reports: Pain Controlled - Review of Systems General: Reports: No Symptoms HEENT: Reports: No Symptoms Pulmonary: Reports: No Symptoms Cardiovascular: Reports: No Symptoms Gastrointestinal: Reports: No Symptoms Musculoskeletal: Reports: No Symptoms Skin: Reports: No Symptoms Neurological: Reports: No Symptoms - Patient Data Vitals - Most Recent: Last Vital Signs Temp 36.5 C 12/02/20 08:00 Pulse 121 H 12/02/20 08:00 Resp 18 12/02/20 08:00 BP 183/96 H 12/02/20 08:42 Pulse Ox 94 L 12/02/20 08:00 Weight - Most Recent: 78.018 kg I&O - Last 24 Hours: Intake & Output 12/01/20 12/02/20 12/02/20 22:59 06:59 14:59 Intake Total 150 150 Output Total 250 100 Balance -100 50 Lab Results Last 24 Hours: Laboratory Results - last 24 hr 12/01/20 Range/Units 10:50 Total Bilirubin 0.6 (0.0-1.0) mg/dL Direct Bilirubin 0.2 (0.0-0.3) mg/dL Indirect Bilirubin 0.4 (<= 0.7) mg/dL AST 61 H (15-37) U/L ALT 12 (12-78) U/L Alkaline Phosphatase 62 (46-116) U/L Total Protein 6.4 (6.4-8.2) g/dL Albumin 2.9 L (3.4-5.0) g/dL Globulin 3.5 (2.2-4.2) g/dL Albumin/Globulin Ratio 0.8 (0.8-2.0) Chris Results Last 24 Hours: Microbiology 11/30/20 19:20 Aerobic Blood Culture - Preliminary Blood NO GROWTH AFTER 1 DAY Anaerobic Blood Culture - Preliminary NO GROWTH AFTER 1 DAY Med Orders - Current: Current Medications Acetaminophen (Acetaminophen 325 Mg Tab) 325 mg PO Q6H PRN PRN Reason: Fever Last Admin: 12/02/20 07:58 Dose: 325 mg Documented by: Carbidopa/Levodopa (Carbidopa/Levodopa 50-200 Mg Tab.Er) 1 tab PO BID [facility] Last Admin: 12/02/20 07:56 Dose: 1 tab Documented by: Citalopram Hydrobromide (Citalopram 20 Mg Tab) 40 mg PO DAILY [facility] Last Admin: 12/02/20 07:56 Dose: 40 mg Documented by: Diphenhydramine HCl (Diphenhydramine 50 Mg Cap) 50 mg PO Q6H PRN PRN Reason: Agitation Last Admin: 12/01/20 21:48 Dose: 50 mg Documented by: Donepezil HCl (Donepezil 5 Mg Tab) 5 mg PO BEDTIME [facility] Last Admin: 12/01/20 19:48 Dose: 5 mg Documented by: Sodium Chloride (Normal Saline) 1,000 mls @ 75 mls/hr IV ASDIRECTED [facility] Last Infusion: 11/26/20 19:00 Dose: Infused Documented by: Azithromycin 500 mg/ Sodium (Chloride) 250 mls @ 250 mls/hr IV Q24H [facility] Stop: 12/08/20 12:00 Last Admin: 12/02/20 10:48 Dose: 250 mls/hr Documented by: Levofloxacin/Dextrose 750 mg/ (Levofloxacin/Dextrose) 300 mls @ 100 mls/hr IV Q48H [facility] Stop: 12/08/20 12:01 Last Admin: 12/01/20 12:40 Dose: 100 mls/hr Documented by: Lisinopril (Lisinopril 5 Mg Tab) 15 mg PO DAILY [facility] Last Admin: 12/02/20 08:42 Dose: 15 mg Documented by: Methylprednisolone Sodium Succinate (Methylprednisolone Sodium Succinate 125 Mg/2 Ml Sdv) 125 mg IVPUSH Q6H [facility] Last Admin: 12/02/20 06:00 Dose: 125 mg Documented by: Oxybutynin Chloride (Oxybutynin 5 Mg Tab.Er) 5 mg PO BEDTIME [facility] Last Admin: 12/01/20 19:48 Dose: 5 mg Documented by: Pantoprazole Sodium (Pantoprazole 40 Mg Tab.Cr) 40 mg PO ACBREAKFAST [facility] Last Admin: 12/02/20 06:00 Dose: 40 mg Documented by: Potassium Chloride (Potassium Chloride 10 Meq Tab.Er) 10 meq PO DAILY [facility] Last Admin: 12/02/20 07:56 Dose: 10 meq Documented by: Sodium Chloride (Sodium Chloride 0.9% 10 Ml Syringe) 10 ml FLUSH ASDIRECTED PRN PRN Reason: Keep Vein Open Tamsulosin HCl (Tamsulosin 0.4 Mg Cap.Er) 0.4 mg PO PCBREAKFAST [facility] Last Admin: 12/02/20 09:52 Dose: 0.4 mg Documented by: Discontinued Medications Acetaminophen (Acetaminophen 325 Mg Tab) Confirm Administered Dose 650 mg .ROUTE .STK-MED ONE Stop: 11/28/20 00:39 Last Admin: 11/28/20 03:49 Dose: Not Given Documented by: Carbidopa/Levodopa (Carbidopa/Levodopa 50-200 Mg Tab.Er) Confirm Administered Dose 1 tab .ROUTE .STK-MED ONE Stop: 11/27/20 21:40 Last Admin: 11/27/20 23:19 Dose: Not Given Documented by: Cefuroxime Axetil (Cefuroxime 500 Mg Tab) 500 mg PO BID [facility] Stop: 12/07/20 22:00 Last Admin: 12/01/20 07:33 Dose: 500 mg Documented by: Haloperidol Lactate (Haloperidol Lactate 5 Mg/Ml Sdv) Confirm Administered Dose 5 mg .ROUTE .STK-MED ONE Stop: 11/26/20 20:14 Last Admin: 11/26/20 20:15 Dose: 5 mg Documented by: Haloperidol Lactate (Haloperidol Lactate 5 Mg/Ml Sdv) 5 mg IM ONETIME ONE Stop: 11/26/20 20:14 Last Admin: 11/26/20 20:20 Dose: 5 mg Documented by: Haloperidol Lactate (Haloperidol Lactate 5 Mg/Ml Sdv) Confirm Administered Dose 5 mg .ROUTE .STK-MED ONE Stop: 11/28/20 23:59 Last Admin: 11/29/20 04:24 Dose: Not Given Documented by: Haloperidol Lactate (Haloperidol Lactate 5 Mg/Ml Sdv) 5 mg IM ONETIME ONE Stop: 11/28/20 23:51 Last Admin: 11/28/20 23:59 Dose: 5 mg Documented by: Remdesivir 200 mg/ Sodium (Chloride) 250 mls @ 250 mls/hr IV ONETIME ONE Stop: 11/27/20 09:36 Last Admin: 11/27/20 10:55 Dose: 250 mls/hr Documented by: Remdesivir 100 mg/ Sodium (Chloride) 100 mls @ 100 mls/hr IV Q24H [facility] Stop: 12/01/20 10:59 Last Admin: 12/01/20 09:04 Dose: 100 mls/hr Documented by: Levofloxacin/Dextrose 750 mg/ (Levofloxacin/Dextrose) 300 mls @ 100 mls/hr IV Q24H [facility] Stop: 12/08/20 12:00 Last Admin: 12/01/20 12:10 Dose: Not Given Documented by: Levofloxacin/Dextrose (Levaquin In D5w 750 Mg/150 Ml) Confirm Administered Dose 150 mls @ as directed IV .STK-MED ONE Stop: 12/01/20 12:21 Last Admin: 12/01/20 12:32 Dose: Not Given Documented by: Lisinopril (Lisinopril 5 Mg Tab) 12.5 mg PO DAILY [facility] Last Admin: 11/30/20 08:04 Dose: 12.5 mg Documented by: Lisinopril (Lisinopril 10 Mg Tab) Confirm Administered Dose 10 mg .ROUTE .STK- MED ONE Stop: 11/27/20 08:56 Last Admin: 11/27/20 09:03 Dose: Not Given Documented by: Lisinopril (Lisinopril 5 Mg Tab) 5 mg PO ONETIME ONE Stop: 11/30/20 17:41 Last Admin: 11/30/20 18:32 Dose: 5 mg Documented by: Lorazepam (Lorazepam 1 Mg Tab) 1 mg PO ONETIME ONE Stop: 11/30/20 14:52 Last Admin: 11/30/20 15:33 Dose: 1 mg Documented by: Pantoprazole Sodium (Pantoprazole 40 Mg Delayed-Release Granules 1 Packet) 40 mg PO Q24H [facility] Last Admin: 11/29/20 06:56 Dose: Not Given Documented by: - Exam Quality Assessment: Urine Catheter Urinary Catheter Total Time: 2Days 18Hours General: Alert, Oriented (Habits white count is improved today she is a little better) HEENT: Pupils Equal, Pupils Reactive, EOMI, Mucous Membr. Moist/[place] Neck: Supple Lungs: Normal Respiratory Effort, Rales (Few in bilateral bases) Extremities: Normal Inspection Skin: Warm, Dry Neurological: No New Focal Deficit - Patient Data Lab Results Last 24 hrs: Laboratory Results - last 24 hr 12/01/20 Range/Units 10:50 Total Bilirubin 0.6 (0.0-1.0) mg/dL Direct Bilirubin 0.2 (0.0-0.3) mg/dL Indirect Bilirubin 0.4 (<= 0.7) mg/dL AST 61 H (15-37) U/L ALT 12 (12-78) U/L Alkaline Phosphatase 62 (46-116) U/L Total Protein 6.4 (6.4-8.2) g/dL Albumin 2.9 L (3.4-5.0) g/dL Globulin 3.5 (2.2-4.2) g/dL Albumin/Globulin Ratio 0.8 (0.8-2.0) Result Diagrams: 11/30/20 19:20 11/26/20 14:40 Chris Results Last 24 hrs: Microbiology 11/30/20 19:20 Aerobic Blood Culture - Preliminary Blood NO GROWTH AFTER 1 DAY Anaerobic Blood Culture - Preliminary NO GROWTH AFTER 1 DAY Sepsis Event Note - Evaluation Sepsis Screening Result: Possible Sepsis Risk - Focused Exam Vital Signs: Vital Signs Temp Temp Pulse Resp BP BP Pulse Ox 12/02/20 08:42 183/96 H 12/02/20 08:00 36.5 C 121 H 18 184/96 H 94 L 12/02/20 00:00 36.2 C 101 H 26 H 153/86 H 94 L - Problem List & Annotations (1) Weakness SNOMED Code(s): 32434094 Code(s): R53.1 - WEAKNESS Status: Acute Priority: High Current Visit: Yes - Problem List Review Problem List Initiated/Reviewed/Updated: Yes - My Orders Last 24 Hours: My Active Orders 12/01/20 11:00 Azithromycin [Zithromax] 500 mg Sodium Chloride 0.9% [Normal Saline (AdvBag)] 250 ml IV Q24H 12/01/20 11:30 methylPREDNISolone Sod Succ [Solu-MEDROL] 125 mg IVPUSH Q6H 12/01/20 12:00 Levofloxacin/Dextrose 5%-Water [Levaquin in D5W 750 MG/150 ML] 750 mg Levofloxacin/Dextrose 5%-Water [Levaquin in D5W 750 MG/150 ML] 150 ml IV Q48H - Assessment Assessment:: Problems 1. Falls 2. Weakness 3. Covid positive. 4. UTI 5. Pneumonia - Plan Plan:: Falls and Weakness Patient will continue to work with physical therapy and nursing to strengthen in preparation for discharge. Covid positive; Pneumonia Patient continues on remdesivir IV. Chest x-ray obtained this morning does reveal a new pneumonia. He will be started on IV Zithromax and Levaquin. He will also be also be started on IV Solu-Medrol Medrol. UTI Patient was started on oral cefuroxime last evening in regards to a positive urine. This was DC'd related to his creatinine clearance. Given his other IV antibiotic requirements I will not be initiating a new antibiotic for this.
[2020-12-02] MEDS ORDERED: Polyethylene Glycol 3350 Powder 17 GM Packet ONE (11:17)
[2020-12-02] MEDS: LORazepam 1 MG Tab PO PRN ×2 (13:30→19:50)
[2020-12-02] MEDS: Albuterol/Ipratropium 3.0-0.5 MG/3 ML Neb Soln NEB PRN (18:19)
[2020-12-02] MEDS: diphenhydrAMINE 50 MG Cap PO PRN (19:49)
[2020-12-02] MEDS: Oxybutynin 5 MG Tab.ER PO SCH (19:49)
[2020-12-02] MEDS: Donepezil 5 MG Tab PO SCH (19:49)
[2020-12-03] MEDS: methylPREDNISolone Sodium Succinate 125 MG/2 ML SDV IVPUSH SCH ×5 (00:38→23:23)
[2020-12-03] MEDS: LORazepam 1 MG Tab PO PRN ×3 (07:55→20:14)
[2020-12-03] MEDS: Carbidopa/Levodopa 50-200 MG Tab.ER PO SCH ×2 (07:55→20:14)
[2020-12-03] MEDS: Citalopram 20 MG Tab PO SCH (07:55)
[2020-12-03] MEDS: Pantoprazole 40 MG Tab.CR PO SCH (07:55)
[2020-12-03] MEDS: Potassium Chloride 10 MEQ Tab.ER PO SCH (07:59)
[2020-12-03] MEDS: Albuterol/Ipratropium 3.0-0.5 MG/3 ML Neb Soln NEB PRN ×3 (08:00→17:59)
[2020-12-03] MEDS: Acetaminophen 325 MG Tab PO PRN ×3 (08:00→20:15)
[2020-12-03] MEDS ORDERED: methylPREDNISolone Sodium Succinate 125 MG/2 ML SDV ONE (08:03)
--- NOTE | 2020-12-03 08:31 | PCM.PN ---
- General Info Date of Service: 12/03/20 Admission Dx/Problem (Free Text): Falls, weakness, COVID Subjective Update: Patient status largely unchanged. Intermittent. Periods of confusion with a l ittle bit of agitation. He can be redirected fairly successfully. He denies pain, he continues to have a coarse cough occasionally with some congestion. Vital signs have been stable, afebrile. Functional Status: Reports: Pain Controlled - Review of Systems General: Denies: Fever HEENT: Reports: No Symptoms Pulmonary: Reports: Cough Cardiovascular: Reports: No Symptoms Gastrointestinal: Denies: Abdominal Pain, Diarrhea, Nausea, Vomiting Musculoskeletal: Reports: No Symptoms Skin: Reports: No Symptoms Neurological: Reports: No Symptoms - Patient Data Vitals - Most Recent: Last Vital Signs Temp 36.6 C 12/03/20 04:00 Pulse 77 12/03/20 04:00 Resp 19 12/03/20 04:00 BP 146/73 H 12/03/20 04:00 Pulse Ox 93 L 12/03/20 04:00 Weight - Most Recent: 78.018 kg I&O - Last 24 Hours: Intake & Output 12/02/20 12/03/20 12/03/20 22:59 06:59 14:59 Intake Total 75 Output Total 225 Balance -150 Chris Results Last 24 Hours: Microbiology 11/30/20 19:20 Aerobic Blood Culture - Preliminary Blood NO GROWTH AFTER 2 DAYS Anaerobic Blood Culture - Preliminary NO GROWTH AFTER 2 DAYS Med Orders - Current: Current Medications Acetaminophen (Acetaminophen 325 Mg Tab) 325 mg PO Q6H PRN PRN Reason: Fever Last Admin: 12/02/20 19:49 Dose: 325 mg Documented by: Albuterol/Ipratropium (Albuterol/Ipratropium 3.0-0.5 Mg/3 Ml Neb Soln) 3 ml NEB Q4H PRN PRN Reason: Shortness of Breath Last Admin: 12/02/20 18:19 Dose: 3 ml Documented by: Carbidopa/Levodopa (Carbidopa/Levodopa 50-200 Mg Tab.Er) 1 tab PO BID [facility] Last Admin: 12/03/20 07:55 Dose: 1 tab Documented by: Citalopram Hydrobromide (Citalopram 20 Mg Tab) 40 mg PO DAILY [facility] Last Admin: 12/03/20 07:55 Dose: 40 mg Documented by: Diphenhydramine HCl (Diphenhydramine 50 Mg Cap) 50 mg PO Q6H PRN PRN Reason: Agitation Last Admin: 12/02/20 19:49 Dose: 50 mg Documented by: Donepezil HCl (Donepezil 5 Mg Tab) 5 mg PO BEDTIME [facility] Last Admin: 12/02/20 19:49 Dose: 5 mg Documented by: Sodium Chloride (Normal Saline) 1,000 mls @ 75 mls/hr IV ASDIRECTED [facility] Last Infusion: 11/26/20 19:00 Dose: Infused Documented by: Azithromycin 500 mg/ Sodium (Chloride) 250 mls @ 250 mls/hr IV Q24H [facility] Stop: 12/08/20 12:00 Last Admin: 12/02/20 10:48 Dose: 250 mls/hr Documented by: Levofloxacin/Dextrose 750 mg/ (Levofloxacin/Dextrose) 300 mls @ 100 mls/hr IV Q48H [facility] Stop: 12/08/20 12:01 Last Admin: 12/01/20 12:40 Dose: 100 mls/hr Documented by: Lisinopril (Lisinopril 5 Mg Tab) 15 mg PO DAILY [facility] Last Admin: 12/02/20 08:42 Dose: 15 mg Documented by: Lorazepam (Lorazepam 1 Mg Tab) 1 mg PO Q6H PRN PRN Reason: Agitation Last Admin: 12/03/20 07:55 Dose: 1 mg Documented by: Methylprednisolone Sodium Succinate (Methylprednisolone Sodium Succinate 125 Mg/2 Ml Sdv) 125 mg IVPUSH Q6H [facility] Last Admin: 12/03/20 07:55 Dose: 125 mg Documented by: Oxybutynin Chloride (Oxybutynin 5 Mg Tab.Er) 5 mg PO BEDTIME [facility] Last Admin: 12/02/20 19:49 Dose: 5 mg Documented by: Pantoprazole Sodium (Pantoprazole 40 Mg Tab.Cr) 40 mg PO ACBREAKFAST [facility] Last Admin: 12/03/20 07:55 Dose: 40 mg Documented by: Potassium Chloride (Potassium Chloride 10 Meq Tab.Er) 10 meq PO DAILY [facility] Last Admin: 12/03/20 07:59 Dose: 10 meq Documented by: Sodium Chloride (Sodium Chloride 0.9% 10 Ml Syringe) 10 ml FLUSH ASDIRECTED PRN PRN Reason: Keep Vein Open Tamsulosin HCl (Tamsulosin 0.4 Mg Cap.Er) 0.8 mg PO PCBREAKFAST [facility] Last Admin: 12/02/20 13:25 Dose: 0.4 mg Documented by: Discontinued Medications Acetaminophen (Acetaminophen 325 Mg Tab) Confirm Administered Dose 650 mg .ROUTE .STK-MED ONE Stop: 11/28/20 00:39 Last Admin: 11/28/20 03:49 Dose: Not Given Documented by: Carbidopa/Levodopa (Carbidopa/Levodopa 50-200 Mg Tab.Er) Confirm Administered Dose 1 tab .ROUTE .STK-MED ONE Stop: 11/27/20 21:40 Last Admin: 11/27/20 23:19 Dose: Not Given Documented by: Cefuroxime Axetil (Cefuroxime 500 Mg Tab) 500 mg PO BID [facility] Stop: 12/07/20 22:00 Last Admin: 12/01/20 07:33 Dose: 500 mg Documented by: Haloperidol Lactate (Haloperidol Lactate 5 Mg/Ml Sdv) Confirm Administered Dose 5 mg .ROUTE .STK-MED ONE Stop: 11/26/20 20:14 Last Admin: 11/26/20 20:15 Dose: 5 mg Documented by: Haloperidol Lactate (Haloperidol Lactate 5 Mg/Ml Sdv) 5 mg IM ONETIME ONE Stop: 11/26/20 20:14 Last Admin: 11/26/20 20:20 Dose: 5 mg Documented by: Haloperidol Lactate (Haloperidol Lactate 5 Mg/Ml Sdv) Confirm Administered Dose 5 mg .ROUTE .STK-MED ONE Stop: 11/28/20 23:59 Last Admin: 11/29/20 04:24 Dose: Not Given Documented by: Haloperidol Lactate (Haloperidol Lactate 5 Mg/Ml Sdv) 5 mg IM ONETIME ONE Stop: 11/28/20 23:51 Last Admin: 11/28/20 23:59 Dose: 5 mg Documented by: Remdesivir 200 mg/ Sodium (Chloride) 250 mls @ 250 mls/hr IV ONETIME ONE Stop: 11/27/20 09:36 Last Admin: 11/27/20 10:55 Dose: 250 mls/hr Documented by: Remdesivir 100 mg/ Sodium (Chloride) 100 mls @ 100 mls/hr IV Q24H [facility] Stop: 12/01/20 10:59 Last Admin: 12/01/20 09:04 Dose: 100 mls/hr Documented by: Levofloxacin/Dextrose 750 mg/ (Levofloxacin/Dextrose) 300 mls @ 100 mls/hr IV Q24H [facility] Stop: 12/08/20 12:00 Last Admin: 12/01/20 12:10 Dose: Not Given Documented by: Levofloxacin/Dextrose (Levaquin In D5w 750 Mg/150 Ml) Confirm Administered Dose 150 mls @ as directed IV .STK-MED ONE Stop: 12/01/20 12:21 Last Admin: 12/01/20 12:32 Dose: Not Given Documented by: Lisinopril (Lisinopril 5 Mg Tab) 12.5 mg PO DAILY [facility] Last Admin: 11/30/20 08:04 Dose: 12.5 mg Documented by: Lisinopril (Lisinopril 10 Mg Tab) Confirm Administered Dose 10 mg .ROUTE .STK- MED ONE Stop: 11/27/20 08:56 Last Admin: 11/27/20 09:03 Dose: Not Given Documented by: Lisinopril (Lisinopril 5 Mg Tab) 5 mg PO ONETIME ONE Stop: 11/30/20 17:41 Last Admin: 11/30/20 18:32 Dose: 5 mg Documented by: Lorazepam (Lorazepam 1 Mg Tab) 1 mg PO ONETIME ONE Stop: 11/30/20 14:52 Last Admin: 11/30/20 15:33 Dose: 1 mg Documented by: Methylprednisolone Sodium Succinate (Methylprednisolone Sodium Succinate 125 Mg/2 Ml Sdv) Confirm Administered Dose 125 mg .ROUTE .STK-MED ONE Stop: 12/03/20 08:04 Last Admin: 12/03/20 08:01 Dose: Not Given Documented by: Pantoprazole Sodium (Pantoprazole 40 Mg Delayed-Release Granules 1 Packet) 40 mg PO Q24H [facility] Last Admin: 11/29/20 06:56 Dose: Not Given Documented by: Polyethylene Glycol (Polyethylene Glycol 3350 Powder 17 Gm Packet) Confirm Administered Dose 17 gm .ROUTE .STK-MED ONE Stop: 12/02/20 11:18 Last Admin: 12/02/20 11:20 Dose: Not Given Documented by: Tamsulosin HCl (Tamsulosin 0.4 Mg Cap.Er) 0.4 mg PO PCBREAKFAST [facility] Last Admin: 12/02/20 09:52 Dose: 0.4 mg Documented by: - Exam Quality Assessment: Urine Catheter Urinary Catheter Total Time: 2Days 18Hours General: Alert, No Acute Distress HEENT: Pupils Equal, Pupils Reactive, EOMI, Mucous Membr. Moist/[place] Neck: Supple Lungs: Normal Respiratory Effort, Rales (Few in bilateral bases), Other (Intermittent coarse cough) Cardiovascular: Regular Rate, Regular Rhythm Back Exam: Normal Inspection Extremities: Normal Inspection Skin: Warm, Dry Neurological: No New Focal Deficit Psy/Mental Status: Alert - Patient Data Result Diagrams: 11/30/20 19:20 11/26/20 14:40 Chris Results Last 24 hrs: Microbiology 11/30/20 19:20 Aerobic Blood Culture - Preliminary Blood NO GROWTH AFTER 2 DAYS Anaerobic Blood Culture - Preliminary NO GROWTH AFTER 2 DAYS Sepsis Event Note - Evaluation Sepsis Screening Result: Possible Sepsis Risk - Focused Exam Vital Signs: Vital Signs Temp Pulse Resp BP Pulse Ox 12/03/20 04:00 36.6 C 77 19 146/73 H 93 L 12/02/20 23:54 20 - Problem List & Annotations (1) Weakness SNOMED Code(s): 15218479 Code(s): R53.1 - WEAKNESS Status: Acute Priority: High Current Visit: Yes - Problem List Review Problem List Initiated/Reviewed/Updated: Yes - My Orders Last 24 Hours: My Active Orders 12/02/20 12:59 LORazepam [Ativan] 1 mg PO Q6H PRN 12/02/20 13:00 Tamsulosin [Flomax] 0.8 mg PO PCBREAKFAST 12/02/20 16:58 Albuterol/Ipratropium [DuoNeb 3.0-0.5 MG/3 ML] 3 ml NEB Q4H PRN 12/02/20 17:02 RT Aerosol Therapy [RC] ASDIRECTED - Assessment Assessment:: Problems 1. Falls 2. Weakness 3. Covid positive. 4. UTI 5. Pneumonia - Plan Plan:: Falls and Weakness Patient will continue to work with physical therapy and nursing to strengthen in preparation for discharge. Covid positive; Pneumonia IV remdesivir is complete. I will continue him on IV antibiotics for one additional day then change him to oral medications. UTI Indwelling Rodrigues remains in place. He is a bit agitated at times which could be related to this. We will continue to monitor urine output.
[2020-12-03] MEDS: Lisinopril 5 MG Tab PO SCH (08:40)
[2020-12-03] MEDS: Tamsulosin 0.4 MG Cap.ER PO SCH (10:43)
[2020-12-03] MEDS: Azithromycin 500 MG in Sodium Chloride 0.9% 250 ML IV SCH (11:51)
[2020-12-03] MEDS ORDERED: Levofloxacin/Dextrose 5%-Water 150 ML IV ONE (12:48)
[2020-12-03] MEDS: Levofloxacin/Dextrose 5%-Water 750 MG in Levofloxacin/Dextrose 5%-Water 150 ML IV SCH (12:53)
[2020-12-03] MEDS: Oxybutynin 5 MG Tab.ER PO SCH (20:14)
[2020-12-03] MEDS: diphenhydrAMINE 50 MG Cap PO PRN (20:14)
[2020-12-03] MEDS: Donepezil 5 MG Tab PO SCH (20:14)
[2020-12-04] MEDS: methylPREDNISolone Sodium Succinate 125 MG/2 ML SDV IVPUSH SCH ×2 (06:29→11:31)
[2020-12-04] MEDS: Pantoprazole 40 MG Tab.CR PO SCH (10:03)
[2020-12-04] MEDS: Carbidopa/Levodopa 50-200 MG Tab.ER PO SCH ×2 (10:04→20:12)
[2020-12-04] MEDS: Citalopram 20 MG Tab PO SCH (10:05)
[2020-12-04] MEDS: Lisinopril 5 MG Tab PO SCH (10:05)
[2020-12-04] MEDS: Potassium Chloride 10 MEQ Tab.ER PO SCH (10:05)
[2020-12-04] MEDS: Tamsulosin 0.4 MG Cap.ER PO SCH (10:07)
[2020-12-04] MEDS ORDERED: Lisinopril 10 MG Tab ONE (10:10)
[2020-12-04] MEDS ORDERED: Citalopram 20 MG Tab ONE (10:11)
[2020-12-04] MEDS: Azithromycin 500 MG in Sodium Chloride 0.9% 250 ML IV SCH ×2 (10:17→11:31)
[2020-12-04] MEDS: LORazepam 1 MG Tab PO PRN ×2 (11:50→20:12)
--- NOTE | 2020-12-04 13:43 | PCM.PN ---
- General Info Date of Service: 12/04/20 Admission Dx/Problem (Free Text): Falls, weakness, COVID Subjective Update: This patient remains largely unchanged over the past 24 hours. He continues to have a rather coarse cough, is somewhat confused and anxious. He denies any pain today. He does have periods of tachycardia; however, his heart rate does go back down to normal limits. This does not appear to be related to any particular activity or movement. He has had no vomiting or diarrhea. His appetite is good and he is drinking fluids. Functional Status: Reports: Pain Controlled - Review of Systems General: Denies: Fever HEENT: Reports: No Symptoms (Sleeping difficult patient's) Pulmonary: Reports: Cough (He does not have he does not have a goiter) Cardiovascular: Reports: Dyspnea on Exertion. Denies: Chest Pain Gastrointestinal: Denies: Abdominal Pain, Nausea, Vomiting Musculoskeletal: Reports: No Symptoms Skin: Reports: No Symptoms Neurological: Reports: No Symptoms - Patient Data Vitals - Most Recent: Last Vital Signs Temp 36.4 C 12/04/20 08:00 Pulse 128 H 12/04/20 08:00 Resp 24 H 12/04/20 08:00 BP 159/86 H 12/04/20 10:05 Pulse Ox 93 L 12/04/20 10:00 Weight - Most Recent: 78.018 kg I&O - Last 24 Hours: Intake & Output 12/03/20 12/04/20 12/04/20 22:59 06:59 14:59 Intake Total 120 Output Total 275 Balance -155 Chris Results Last 24 Hours: Microbiology 11/30/20 19:20 Aerobic Blood Culture - Preliminary Blood NO GROWTH AFTER 3 DAYS Anaerobic Blood Culture - Preliminary NO GROWTH AFTER 3 DAYS 11/30/20 18:50 Urine Culture - Final Urine, Catheterized MIXED VAMSI SUGGESTIVE OF CONTAMINATION. Med Orders - Current: Current Medications Acetaminophen (Acetaminophen 325 Mg Tab) 325 mg PO Q6H PRN PRN Reason: Fever Last Admin: 12/03/20 20:15 Dose: 650 mg Documented by: Albuterol/Ipratropium (Albuterol/Ipratropium 3.0-0.5 Mg/3 Ml Neb Soln) 3 ml NEB Q4H PRN PRN Reason: Shortness of Breath Last Admin: 12/03/20 17:59 Dose: 3 ml Documented by: Azithromycin (Azithromycin 250 Mg Tab) 500 mg PO DAILY [facility] Stop: 12/07/20 14:00 Carbidopa/Levodopa (Carbidopa/Levodopa 50-200 Mg Tab.Er) 1 tab PO BID [facility] Last Admin: 12/04/20 10:04 Dose: 1 tab Documented by: Citalopram Hydrobromide (Citalopram 20 Mg Tab) 40 mg PO DAILY [facility] Last Admin: 12/04/20 10:05 Dose: 40 mg Documented by: Diphenhydramine HCl (Diphenhydramine 50 Mg Cap) 50 mg PO Q6H PRN PRN Reason: Agitation Last Admin: 12/03/20 20:14 Dose: 50 mg Documented by: Donepezil HCl (Donepezil 5 Mg Tab) 5 mg PO BEDTIME [facility] Last Admin: 12/03/20 20:14 Dose: 5 mg Documented by: Lisinopril (Lisinopril 5 Mg Tab) 15 mg PO DAILY [facility] Last Admin: 12/04/20 10:05 Dose: 15 mg Documented by: Lorazepam (Lorazepam 1 Mg Tab) 1 mg PO Q6H PRN PRN Reason: Agitation Last Admin: 12/04/20 11:50 Dose: 1 mg Documented by: Oxybutynin Chloride (Oxybutynin 5 Mg Tab.Er) 5 mg PO BEDTIME [facility] Last Admin: 12/03/20 20:14 Dose: 5 mg Documented by: Pantoprazole Sodium (Pantoprazole 40 Mg Tab.Cr) 40 mg PO ACBREAKFAST [facility] Last Admin: 12/04/20 10:03 Dose: 40 mg Documented by: Potassium Chloride (Potassium Chloride 10 Meq Tab.Er) 10 meq PO DAILY [facility] Last Admin: 12/04/20 10:05 Dose: 10 meq Documented by: Prednisone (Prednisone 20 Mg Tab) 40 mg PO WITHBREAKFAST [facility] Sodium Chloride (Sodium Chloride 0.9% 10 Ml Syringe) 10 ml FLUSH ASDIRECTED PRN PRN Reason: Keep Vein Open Last Admin: 12/03/20 23:24 Dose: 10 ml Documented by: Tamsulosin HCl (Tamsulosin 0.4 Mg Cap.Er) 0.8 mg PO PCBREAKFAST [facility] Last Admin: 12/04/20 10:07 Dose: 0.8 mg Documented by: Discontinued Medications Acetaminophen (Acetaminophen 325 Mg Tab) Confirm Administered Dose 650 mg .ROUTE .STK-MED ONE Stop: 11/28/20 00:39 Last Admin: 11/28/20 03:49 Dose: Not Given Documented by: Carbidopa/Levodopa (Carbidopa/Levodopa 50-200 Mg Tab.Er) Confirm Administered Dose 1 tab .ROUTE .STK-MED ONE Stop: 11/27/20 21:40 Last Admin: 11/27/20 23:19 Dose: Not Given Documented by: Cefuroxime Axetil (Cefuroxime 500 Mg Tab) 500 mg PO BID [facility] Stop: 12/07/20 22:00 Last Admin: 12/01/20 07:33 Dose: 500 mg Documented by: Citalopram Hydrobromide (Citalopram 20 Mg Tab) Confirm Administered Dose 20 mg .ROUTE .STK-MED ONE Stop: 12/04/20 10:12 Haloperidol Lactate (Haloperidol Lactate 5 Mg/Ml Sdv) Confirm Administered Dose 5 mg .ROUTE .STK-MED ONE Stop: 11/26/20 20:14 Last Admin: 11/26/20 20:15 Dose: 5 mg Documented by: Haloperidol Lactate (Haloperidol Lactate 5 Mg/Ml Sdv) 5 mg IM ONETIME ONE Stop: 11/26/20 20:14 Last Admin: 11/26/20 20:20 Dose: 5 mg Documented by: Haloperidol Lactate (Haloperidol Lactate 5 Mg/Ml Sdv) Confirm Administered Dose 5 mg .ROUTE .STK-MED ONE Stop: 11/28/20 23:59 Last Admin: 11/29/20 04:24 Dose: Not Given Documented by: Haloperidol Lactate (Haloperidol Lactate 5 Mg/Ml Sdv) 5 mg IM ONETIME ONE Stop: 11/28/20 23:51 Last Admin: 11/28/20 23:59 Dose: 5 mg Documented by: Sodium Chloride (Normal Saline) 1,000 mls @ 75 mls/hr IV ASDIRECTED [facility] Last Infusion: 11/26/20 19:00 Dose: Infused Documented by: Remdesivir 200 mg/ Sodium (Chloride) 250 mls @ 250 mls/hr IV ONETIME ONE Stop: 11/27/20 09:36 Last Admin: 11/27/20 10:55 Dose: 250 mls/hr Documented by: Remdesivir 100 mg/ Sodium (Chloride) 100 mls @ 100 mls/hr IV Q24H [facility] Stop: 12/01/20 10:59 Last Admin: 12/01/20 09:04 Dose: 100 mls/hr Documented by: Azithromycin 500 mg/ Sodium (Chloride) 250 mls @ 250 mls/hr IV Q24H [facility] Stop: 12/08/20 12:00 Last Admin: 12/04/20 11:31 Dose: Not Given Documented by: Levofloxacin/Dextrose 750 mg/ (Levofloxacin/Dextrose) 300 mls @ 100 mls/hr IV Q24H [facility] Stop: 12/08/20 12:00 Last Admin: 12/01/20 12:10 Dose: Not Given Documented by: Levofloxacin/Dextrose 750 mg/ (Levofloxacin/Dextrose) 300 mls @ 100 mls/hr IV Q48H [facility] Stop: 12/08/20 12:01 Last Admin: 12/03/20 12:53 Dose: 100 mls/hr Documented by: Levofloxacin/Dextrose (Levaquin In D5w 750 Mg/150 Ml) Confirm Administered Dose 150 mls @ as directed IV .STK-MED ONE Stop: 12/01/20 12:21 Last Admin: 12/01/20 12:32 Dose: Not Given Documented by: Levofloxacin/Dextrose (Levaquin In D5w 750 Mg/150 Ml) Confirm Administered Dose 150 mls @ as directed IV .STK-MED ONE Stop: 12/03/20 12:49 Last Admin: 12/03/20 12:54 Dose: Not Given Documented by: Lisinopril (Lisinopril 5 Mg Tab) 12.5 mg PO DAILY [facility] Last Admin: 11/30/20 08:04 Dose: 12.5 mg Documented by: Lisinopril (Lisinopril 10 Mg Tab) Confirm Administered Dose 10 mg .ROUTE .STK- MED ONE Stop: 11/27/20 08:56 Last Admin: 11/27/20 09:03 Dose: Not Given Documented by: Lisinopril (Lisinopril 5 Mg Tab) 5 mg PO ONETIME ONE Stop: 11/30/20 17:41 Last Admin: 11/30/20 18:32 Dose: 5 mg Documented by: Lisinopril (Lisinopril 10 Mg Tab) Confirm Administered Dose 10 mg .ROUTE .STK- MED ONE Stop: 12/04/20 10:11 Lorazepam (Lorazepam 1 Mg Tab) 1 mg PO ONETIME ONE Stop: 11/30/20 14:52 Last Admin: 11/30/20 15:33 Dose: 1 mg Documented by: Methylprednisolone Sodium Succinate (Methylprednisolone Sodium Succinate 125 Mg/2 Ml Sdv) 125 mg IVPUSH Q6H [facility] Last Admin: 12/04/20 11:31 Dose: Not Given Documented by: Methylprednisolone Sodium Succinate (Methylprednisolone Sodium Succinate 125 Mg/2 Ml Sdv) Confirm Administered Dose 125 mg .ROUTE .STK-MED ONE Stop: 12/03/20 08:04 Last Admin: 12/03/20 08:01 Dose: Not Given Documented by: Pantoprazole Sodium (Pantoprazole 40 Mg Delayed-Release Granules 1 Packet) 40 mg PO Q24H [facility] Last Admin: 11/29/20 06:56 Dose: Not Given Documented by: Polyethylene Glycol (Polyethylene Glycol 3350 Powder 17 Gm Packet) Confirm Administered Dose 17 gm .ROUTE .STK-MED ONE Stop: 12/02/20 11:18 Last Admin: 12/02/20 11:20 Dose: Not Given Documented by: Tamsulosin HCl (Tamsulosin 0.4 Mg Cap.Er) 0.4 mg PO PCBREAKFAST [facility] Last Admin: 12/02/20 09:52 Dose: 0.4 mg Documented by: - Exam Quality Assessment: Urine Catheter Urinary Catheter Total Time: 6Days 12Hours General: Alert, No Acute Distress HEENT: Pupils Equal, Pupils Reactive, Mucous Membr. Moist/[place] Neck: Supple Lungs: Clear to Auscultation, Normal Respiratory Effort Cardiovascular: Regular Rate, Regular Rhythm, Tachycardia (Periods of tachycardia) GI/Abdominal Exam: Normal Bowel Sounds, Soft, Non-Tender, Other (Mild abdominal distention) Extremities: Normal Inspection Skin: Warm, Dry Neurological: No New Focal Deficit Psy/Mental Status: Alert - Patient Data Result Diagrams: 11/30/20 19:20 11/26/20 14:40 Chris Results Last 24 hrs: Microbiology 11/30/20 19:20 Aerobic Blood Culture - Preliminary Blood NO GROWTH AFTER 3 DAYS Anaerobic Blood Culture - Preliminary NO GROWTH AFTER 3 DAYS 11/30/20 18:50 Urine Culture - Final Urine, Catheterized MIXED VAMSI SUGGESTIVE OF CONTAMINATION. Sepsis Event Note - Evaluation Sepsis Screening Result: Possible Sepsis Risk - Focused Exam Vital Signs: Vital Signs Temp Temp Pulse Resp BP BP Pulse Ox 12/04/20 10:05 159/86 H 12/04/20 10:00 12/04/20 08:00 36.4 C 128 H 24 H 159/86 H 93 L 12/04/20 04:00 36.9 C 111 H 26 H 165/84 H 94 L Pulse Ox 12/04/20 10:05 12/04/20 10:00 93 L 12/04/20 08:00 12/04/20 04:00 - Problem List & Annotations (1) Weakness SNOMED Code(s): 60775125 Code(s): R53.1 - WEAKNESS Status: Acute Priority: High Current Visit: Yes - Problem List Review Problem List Initiated/Reviewed/Updated: Yes - My Orders Last 24 Hours: My Active Orders 12/04/20 04:14 Renew/Continue Urinary Catheter [OM.PC] Routine 12/05/20 07:00 predniSONE 40 mg PO WITHBREAKFAST 12/05/20 08:00 Azithromycin [Zithromax] 500 mg PO DAILY - Assessment Assessment:: Problems 1. Falls 2. Weakness 3. Covid positive. 4. UTI 5. Pneumonia - Plan Plan:: Falls and Weakness Patient will continue to work with physical therapy and nursing to strengthen in preparation for discharge. Covid positive; Pneumonia IV medications were discontinued. He will be given oral Zithromax for 3 addtional days (total 7) and oral prednisone for 1 additional day (total 5). UTI Indwelling Rodrigues remains in place. He is a bit agitated at times which could be related to this. We will continue to monitor urine output.
[2020-12-04] MEDS: Acetaminophen 325 MG Tab PO PRN ×2 (14:50→20:13)
[2020-12-04] MEDS: Albuterol/Ipratropium 3.0-0.5 MG/3 ML Neb Soln NEB PRN (14:50)
[2020-12-04] MEDS: predniSONE 20 MG Tab PO SCH (18:00)
[2020-12-04] MEDS: Azithromycin 250 MG Tab PO SCH (18:00)
[2020-12-04] MEDS ORDERED: predniSONE 20 MG Tab ONE (18:15)
[2020-12-04] MEDS: Oxybutynin 5 MG Tab.ER PO SCH (20:12)
[2020-12-04] MEDS: diphenhydrAMINE 50 MG Cap PO PRN (20:12)
[2020-12-04] MEDS: Donepezil 5 MG Tab PO SCH (20:12)
[2020-12-05] MEDS: LORazepam 1 MG Tab PO PRN ×2 (00:33→08:30)
[2020-12-05] MEDS: diphenhydrAMINE 50 MG Cap PO PRN (03:00)
[2020-12-05] MEDS: Acetaminophen 325 MG Tab PO PRN (05:42)
[2020-12-05] MEDS: Pantoprazole 40 MG Tab.CR PO SCH (07:29)
[2020-12-05] MEDS: Potassium Chloride 10 MEQ Tab.ER PO SCH (07:30)
[2020-12-05] MEDS: Azithromycin 250 MG Tab PO SCH (07:30)
[2020-12-05] MEDS: Citalopram 20 MG Tab PO SCH (07:31)
[2020-12-05] MEDS: Carbidopa/Levodopa 50-200 MG Tab.ER PO SCH (07:32)
[2020-12-05] MEDS: predniSONE 20 MG Tab PO SCH (07:33)
[2020-12-05] MEDS: Lisinopril 5 MG Tab PO SCH (08:30)
[2020-12-05] MEDS: Tamsulosin 0.4 MG Cap.ER PO SCH (10:30)
[2020-12-05] MEDS: Albuterol/Ipratropium 3.0-0.5 MG/3 ML Neb Soln NEB PRN (18:09)
--- NOTE | 2020-12-08 09:45 | PCM.DCSUM1 ---
Discharge Summary - Hospital Course Diagnosis: Stroke: No - Discharge Data Discharge Date: 12/05/20 Discharge Disposition: DC/Tfer W/I Hosp To Swing [facility] Condition: Fair - Referral to Home Health Primary Care Physician: PCP None - Discharge Plan Home Medications: Home Meds Carbidopa/Levodopa [Carbidopa-Levo ER 50-200] 200 mg PO BID 11/26/20 [History] Citalopram [Citalopram HBr] 40 mg PO BEDTIME 11/26/20 [History] Donepezil [Aricept] 5 mg PO BEDTIME 11/26/20 [History] Hydrochlorothiazide/Lisinopril [Lisinopril/HCTZ 10-12.5 MG] 12.5 mg PO DAILY 11/26/20 [History] Omeprazole 20 mg PO DAILY 11/26/20 [History] Potassium Chloride 10 meq PO DAILY 11/26/20 [History] Tamsulosin [Flomax] 0.4 mg PO BEDTIME 11/26/20 [History] Forms: ED Department Discharge Referrals: PCP,None [Primary Care Provider] - - Discharge Summary/Plan Comment DC Time >30 min.: Yes Total # of Minutes for Discharge Time: 20 - General Info Date of Service: 12/06/20 - Review of Systems General: Reports: No Symptoms HEENT: Reports: No Symptoms Pulmonary: Reports: Shortness of Breath, Cough Cardiovascular: Denies: Chest Pain, Palpitations Gastrointestinal: Denies: Abdominal Pain, Diarrhea, Nausea, Vomiting Musculoskeletal: Reports: No Symptoms Skin: Reports: No Symptoms Neurological: Reports: Confusion - Patient Data Vitals - Most Recent: Last Vital Signs Temp 36.5 C 12/06/20 08:00 Pulse 123 H 12/06/20 08:00 Resp 34 H 12/06/20 08:00 BP 167/93 H 12/06/20 09:25 Pulse Ox 95 12/06/20 08:05 Weight - Most Recent: 78.018 kg I&O - Last 24 hours: Intake & Output 12/05/20 12/06/20 12/06/20 22:59 06:59 14:59 Intake Total 480 Output Total 275 350 Balance -275 130 Med Orders - Current: Current Medications Acetaminophen (Acetaminophen 325 Mg Tab) 325 mg PO Q6H PRN PRN Reason: Pain Last Admin: 12/06/20 04:14 Dose: 325 mg Documented by: Albuterol/Ipratropium (Albuterol/Ipratropium 3.0-0.5 Mg/3 Ml Neb Soln) 3 ml NEB Q4H PRN PRN Reason: Wheezing Carbidopa/Levodopa (Carbidopa/Levodopa 50-200 Mg Tab.Er) 1 tab PO BID [facility] Last Admin: 12/06/20 07:46 Dose: 1 tab Documented by: Citalopram Hydrobromide (Citalopram 20 Mg Tab) 40 mg PO DAILY [facility] Last Admin: 12/06/20 07:46 Dose: 40 mg Documented by: Diphenhydramine HCl (Diphenhydramine 50 Mg Cap) 50 mg PO Q6H PRN PRN Reason: Sleep Last Admin: 12/06/20 04:16 Dose: 50 mg Documented by: Donepezil HCl (Donepezil 5 Mg Tab) 5 mg PO BEDTIME [facility] Last Admin: 12/05/20 20:54 Dose: 5 mg Documented by: Lisinopril (Lisinopril 10 Mg Tab) 15 mg PO DAILY [facility] Last Admin: 12/06/20 09:25 Dose: 15 mg Documented by: Lorazepam (Lorazepam 1 Mg Tab) 1 mg PO Q6H PRN PRN Reason: Anxiety Last Admin: 12/06/20 06:03 Dose: 1 mg Documented by: Oxybutynin Chloride (Oxybutynin 5 Mg Tab.Er) 5 mg PO BEDTIME [facility] Last Admin: 12/05/20 20:54 Dose: 5 mg Documented by: Pantoprazole Sodium (Pantoprazole 40 Mg Tab.Cr) 40 mg PO DAILY [facility] Last Admin: 12/06/20 07:46 Dose: 40 mg Documented by: Potassium Chloride (Potassium Chloride 10 Meq Tab.Er) 10 meq PO DAILY [facility] Last Admin: 12/06/20 07:46 Dose: 10 meq Documented by: Prednisone (Prednisone 20 Mg Tab) 40 mg PO DAILY [facility] Last Admin: 12/06/20 09:25 Dose: 40 mg Documented by: Tamsulosin HCl (Tamsulosin 0.4 Mg Cap.Er) 0.8 mg PO PCBREAKFAST [facility] Last Admin: 12/06/20 09:25 Dose: 0.8 mg Documented by: Discontinued Medications Azithromycin (Azithromycin 500 Mg Tab) 500 mg PO ONETIME ONE Stop: 12/06/20 08:01 Last Admin: 12/06/20 07:45 Dose: 500 mg Documented by: Prednisone (Prednisone 20 Mg Tab) 40 mg PO WITHBREAKFAST [facility] Tuberculin PPD (Tuberculin, Ppd 5 Units/0.1 Ml 1 Ml Mdv) 5 unit IDERM ONETIME ONE Stop: 12/05/20 14:53 Last Admin: 12/05/20 15:47 Dose: 5 unit Documented by: - Exam Quality Assessment: Reports: Urine Catheter General: Reports: Alert, Oriented HEENT: Reports: Pupils Equal, Pupils Reactive, EOMI, Mucous Membr. Moist/[place] Neck: Reports: Supple Lungs: Reports: Clear to Auscultation, Normal Respiratory Effort Cardiovascular: Reports: Regular Rate, Regular Rhythm GI/Abdominal Exam: Normal Bowel Sounds, Soft, Non-Tender, No Distention Back Exam: Reports: Normal Inspection Extremities: Normal Inspection Skin: Reports: Warm, Dry Psy/Mental Status: Reports: Alert *Q Meaningful Use (DIS) - VTE *Q VTE Mechanical Contraindications *Q: At Risk for Falls
== END 2020-12-05 10:40 | disposition swing bed (61) | DRG 177 ==
LOC: LB.ED 13:09 → LB.MS 15:33 → OBSVTOIN 19:00 → LB.MS 12-05 07:06
PROVIDERS: ADMIT Surgery; ATTEND Surgery
PROC: XW033E5 Introduction of Remdesivir Anti-infective into Peripheral Vein, Percutaneous Approach, New Technology Group 5 (ICD-10-PCS; principal; 2020-11-26)
DX: U07.1 COVID-19 (principal); E86.0 Dehydration; J12.82 Pneumonia due to coronavirus disease 2019; Z91.81 History of falling; N39.0 Urinary tract infection, site not specified; Z66 Do not resuscitate; J45.909 Unspecified asthma, uncomplicated; G20 Parkinson's disease; I10 Essential (primary) hypertension; F03.90 Unspecified dementia, unspecified severity, without behavioral disturbance, psychotic disturbance, mood disturbance, and anxiety; R29.6 Repeated falls; F41.9 Anxiety disorder, unspecified; R33.9 Retention of urine, unspecified; Z95.0 Presence of cardiac pacemaker; Z85.038 Personal history of other malignant neoplasm of large intestine
CPT/HCPCS: 36415; 51702; 71045; 80053; 80076; 81001; 85025; 87040; 87086; 93005; A0425; A0429; A9270-GY; J0456; J1630; J1956; J2930; J7030; J7050; J7512; J7620-GY; U0002

== ENCOUNTER 2020-11-30 10:25 | Inpatient (IN) | payer MEDICARE, BC ==
--- NOTE | 2020-12-05 13:20 | PCM.HP.2 ---
H&P History of Present Illness - General Date of Service: 12/05/20 Admit Problem/Dx: Admission Diagnosis/Problem Admission Diagnosis/Problem Weakness Source of Information: Patient, RN Notes Reviewed History Limitations: Reports: Other (Dementia) - History of Present Illness Initial Comments - Free Text/Narative: This patient was changed from acute inpatient status to swing bed today. Respiratory status is unchanged and he continues to have an indwelling Rodrigues for urinary retention. Vital signs are stable, he is afebrile. His appetite is fair and he is drinking fluids well. His isolation was discontinued and he has been able to ambulate fairly well in his room with the assistance of 1 and his walker. - Related Data Allergies/Adverse Reactions: Allergies Allergy/AdvReac Type Severity Reaction Status Date / Time No Known Allergies Allergy Verified 11/26/20 16:53 Home Medications: Home Meds Carbidopa/Levodopa [Carbidopa-Levo ER 50-200] 200 mg PO BID 11/26/20 [History] Citalopram [Citalopram HBr] 40 mg PO BEDTIME 11/26/20 [History] Donepezil [Aricept] 5 mg PO BEDTIME 11/26/20 [History] Hydrochlorothiazide/Lisinopril [Lisinopril/HCTZ 10-12.5 MG] 12.5 mg PO DAILY 11/26/20 [History] Omeprazole 20 mg PO DAILY 11/26/20 [History] Potassium Chloride 10 meq PO DAILY 11/26/20 [History] Tamsulosin [Flomax] 0.4 mg PO BEDTIME 11/26/20 [History] Past Medical History HEENT History: Reports: Hard of Hearing Cardiovascular History: Reports: Hypertension Gastrointestinal History: Reports: GERD Genitourinary History: Reports: Prostate Disorder, Retention, Urinary Neurological History: Reports: Alzheimers Disease, Parkinson's Psychiatric History: Reports: Depression Dermatologic History: Reports: Venous Stasis Dermatitis Other Dermatologic History: lower extremities Social & Family History - Family History Family Medical History: Unobtainable H&P Review of Systems - Review of Systems: Review Of Systems: Comprehensive ROS is negative, except as noted in HPI. Exam - Exam Exam: See Below - Vital Signs Vital Signs: Last Vital Signs Temp 36.6 C 12/05/20 13:03 Pulse 118 H 12/05/20 13:03 Resp 20 12/05/20 13:03 BP 172/80 H 12/05/20 13:03 Pulse Ox 97 12/05/20 13:03 Weight: 78.018 kg - Exam Quality Assessment: Urinary Catheter General: Alert HEENT: PERRLA, Conjunctiva Clear, EOMI, Hearing Intact, Mucosa Moist & [place], Nares Patent, Posterior Pharynx Clear, Pupils Equal, Pupils Reactive Neck: Supple Lungs: Normal Respiratory Effort, Rhonchi (Few in bilateral bases) Cardiovascular: Regular Rate (Few in bases), Regular Rhythm GI/Abdominal Exam: Soft, Non-Tender, Distended (Mild) Extremities: Normal Inspection Skin: Warm, Dry Neuro Extensive - Mental Status: Alert Sepsis Event Note - Focused Exam Vital Signs: Vital Signs Temp Pulse Resp BP Pulse Ox 12/05/20 13:03 36.6 C 118 H 20 172/80 H 97 *Q Meaningful Use (ADM) - VTE *Q VTE Mechanical Contraindications *Q: At Risk for Falls - VTE Risk Assess *Q Each Risk Factor Represents 3 Points: Age 75 Years or Greater Total Score 3 Point Risk Factors: 3 Problem List Initiated/Reviewed/Updated: Yes Orders Last 24hrs: Active Orders 24 hr Category Date Time Status Admission Status [Patient Status] [ADT] Routine ADT 12/05/20 10:23 Active Rodrigues Catheter Insertion [Insert Urinary Catheter] [OM. Care 12/05/20 13:00 Ordered PC] Q24H RT Aerosol Therapy [RC] ASDIRECTED Care 12/05/20 12:49 Active Urinary Catheter Assessment [RC] ASDIRECTED Care 12/05/20 12:58 Active Adult Diet [DIET] Diet 12/05/20 Dinner Ordered Acetaminophen [TylenoL] Med 12/05/20 12:50 Active 325 mg PO Q6H PRN Albuterol/Ipratropium [DuoNeb 3.0-0.5 MG/3 ML] Med 12/05/20 12:48 Active 3 ml NEB Q4H PRN Azithromycin [Zithromax] Med 12/06/20 08:00 Once 500 mg PO ONETIME ONE Carbidopa/Levodopa [Sinemet Cr 50-200 mg] Med 12/05/20 20:00 Active 1 tab PO BID Citalopram [Celexa] Med 12/06/20 08:00 Active 40 mg PO DAILY Donepezil [Aricept] Med 12/05/20 20:00 Active 5 mg PO BEDTIME LORazepam [Ativan] Med 12/05/20 12:47 Active 1 mg PO Q6H PRN Oxybutynin [Oxybutynin ER] Med 12/05/20 20:00 Active 5 mg PO BEDTIME Pantoprazole [ProTONIX] Med 12/06/20 08:00 Active 40 mg PO DAILY Potassium Chloride [Klor-Con 10] Med 12/06/20 08:00 Active 10 meq PO DAILY Tamsulosin [Flomax] Med 12/06/20 10:00 Active 0.8 mg PO PCBREAKFAST diphenhydrAMINE [Benadryl] Med 12/05/20 12:47 Active 50 mg PO Q6H PRN lisinopriL [Prinivil] Med 12/06/20 08:00 Active 15 mg PO DAILY predniSONE Med 12/06/20 07:00 Active 40 mg PO WITHBREAKFAST Code Status [Resuscitation Status] Routine Resus Stat 12/05/20 11:38 Ordered Medication Orders Acetaminophen (Acetaminophen 325 Mg Tab) 325 mg PO Q6H PRN PRN Reason: Pain Albuterol/Ipratropium (Albuterol/Ipratropium 3.0-0.5 Mg/3 Ml Neb Soln) 3 ml NEB Q4H PRN PRN Reason: Wheezing Azithromycin (Azithromycin 500 Mg Tab) 500 mg PO ONETIME ONE Stop: 12/06/20 08:01 Carbidopa/Levodopa (Carbidopa/Levodopa 50-200 Mg Tab.Er) 1 tab PO BID [facility] Citalopram Hydrobromide (Citalopram 20 Mg Tab) 40 mg PO DAILY [facility] Diphenhydramine HCl (Diphenhydramine 50 Mg Cap) 50 mg PO Q6H PRN PRN Reason: Sleep Donepezil HCl (Donepezil 5 Mg Tab) 5 mg PO BEDTIME [facility] Lisinopril (Lisinopril 10 Mg Tab) 15 mg PO DAILY [facility] Lorazepam (Lorazepam 1 Mg Tab) 1 mg PO Q6H PRN PRN Reason: Anxiety Oxybutynin Chloride (Oxybutynin 5 Mg Tab.Er) 5 mg PO BEDTIME [facility] Pantoprazole Sodium (Pantoprazole 40 Mg Tab.Cr) 40 mg PO DAILY [facility] Potassium Chloride (Potassium Chloride 10 Meq Tab.Er) 10 meq PO DAILY [facility] Prednisone (Prednisone 20 Mg Tab) 40 mg PO WITHBREAKFAST [facility] Tamsulosin HCl (Tamsulosin 0.4 Mg Cap.Er) 0.8 mg PO PCBREAKFAST [facility]
[2020-12-05] MEDS ORDERED: Tuberculin, PPD 5 Units/0.1 ML 1 ML MDV IDERM ONE (14:52)
[2020-12-05] MEDS: LORazepam 1 MG Tab PO PRN (16:30)
[2020-12-05] MEDS: Carbidopa/Levodopa 50-200 MG Tab.ER PO SCH (20:54)
[2020-12-05] MEDS: Oxybutynin 5 MG Tab.ER PO SCH (20:54)
[2020-12-05] MEDS: Donepezil 5 MG Tab PO SCH (20:54)
[2020-12-05] MEDS: diphenhydrAMINE 50 MG Cap PO PRN (20:55)
[2020-12-05] MEDS: Acetaminophen 325 MG Tab PO PRN (20:55)
[2020-12-06] MEDS: LORazepam 1 MG Tab PO PRN ×3 (01:30→21:23)
[2020-12-06] MEDS: Acetaminophen 325 MG Tab PO PRN (04:14)
[2020-12-06] MEDS: diphenhydrAMINE 50 MG Cap PO PRN (04:16)
[2020-12-06] MEDS ORDERED: predniSONE 20 MG Tab PO SCH ×2 (07:00→08:00)
[2020-12-06] MEDS: Citalopram 20 MG Tab PO SCH (07:46)
[2020-12-06] MEDS: Pantoprazole 40 MG Tab.CR PO SCH (07:46)
[2020-12-06] MEDS: Potassium Chloride 10 MEQ Tab.ER PO SCH (07:46)
[2020-12-06] MEDS: Carbidopa/Levodopa 50-200 MG Tab.ER PO SCH ×2 (07:46→19:47)
[2020-12-06] MEDS ORDERED: Azithromycin 500 MG Tab PO ONE (08:00)
[2020-12-06] MEDS: Tamsulosin 0.4 MG Cap.ER PO SCH (09:25)
[2020-12-06] MEDS: Lisinopril 10 MG Tab PO SCH (09:25)
--- NOTE | 2020-12-06 09:38 | PCM.DCSUM1 ---
Discharge Summary - Hospital Course Diagnosis: Stroke: No - Discharge Data Discharge Date: 12/05/20 Discharge Disposition: DC/Tfer W/I Hosp To Swing 61 Condition: Good - Referral to Home Health Primary Care Physician: PCP None - Discharge Plan Home Medications: Home Meds Carbidopa/Levodopa [Carbidopa-Levo ER 50-200] 200 mg PO BID 11/26/20 [History] Citalopram [Citalopram HBr] 40 mg PO BEDTIME 11/26/20 [History] Donepezil [Aricept] 5 mg PO BEDTIME 11/26/20 [History] Hydrochlorothiazide/Lisinopril [Lisinopril/HCTZ 10-12.5 MG] 12.5 mg PO DAILY 11/26/20 [History] Omeprazole 20 mg PO DAILY 11/26/20 [History] Potassium Chloride 10 meq PO DAILY 11/26/20 [History] Tamsulosin [Flomax] 0.4 mg PO BEDTIME 11/26/20 [History] - Discharge Summary/Plan Comment DC Time >30 min.: Yes Total # of Minutes for Discharge Time: 20 - General Info Date of Service: 12/06/20 - Review of Systems General: Reports: No Symptoms HEENT: Reports: No Symptoms Pulmonary: Reports: Shortness of Breath, Cough Cardiovascular: Denies: Chest Pain, Palpitations Gastrointestinal: Denies: Abdominal Pain, Diarrhea, Nausea, Vomiting Musculoskeletal: Reports: No Symptoms Skin: Reports: No Symptoms Neurological: Reports: Confusion - Patient Data Vitals - Most Recent: Last Vital Signs Temp 36.5 C 12/06/20 08:00 Pulse 123 H 12/06/20 08:00 Resp 34 H 12/06/20 08:00 BP 167/93 H 12/06/20 09:25 Pulse Ox 95 12/06/20 08:05 Weight - Most Recent: 78.018 kg I&O - Last 24 hours: Intake & Output 12/05/20 12/06/20 12/06/20 22:59 06:59 14:59 Intake Total 480 Output Total 275 350 Balance -275 130 Med Orders - Current: Current Medications Acetaminophen (Acetaminophen 325 Mg Tab) 325 mg PO Q6H PRN PRN Reason: Pain Last Admin: 12/06/20 04:14 Dose: 325 mg Documented by: Albuterol/Ipratropium (Albuterol/Ipratropium 3.0-0.5 Mg/3 Ml Neb Soln) 3 ml NEB Q4H PRN PRN Reason: Wheezing Carbidopa/Levodopa (Carbidopa/Levodopa 50-200 Mg Tab.Er) 1 tab PO BID [facility] Last Admin: 12/06/20 07:46 Dose: 1 tab Documented by: Citalopram Hydrobromide (Citalopram 20 Mg Tab) 40 mg PO DAILY [facility] Last Admin: 12/06/20 07:46 Dose: 40 mg Documented by: Diphenhydramine HCl (Diphenhydramine 50 Mg Cap) 50 mg PO Q6H PRN PRN Reason: Sleep Last Admin: 12/06/20 04:16 Dose: 50 mg Documented by: Donepezil HCl (Donepezil 5 Mg Tab) 5 mg PO BEDTIME [facility] Last Admin: 12/05/20 20:54 Dose: 5 mg Documented by: Lisinopril (Lisinopril 10 Mg Tab) 15 mg PO DAILY [facility] Last Admin: 12/06/20 09:25 Dose: 15 mg Documented by: Lorazepam (Lorazepam 1 Mg Tab) 1 mg PO Q6H PRN PRN Reason: Anxiety Last Admin: 12/06/20 06:03 Dose: 1 mg Documented by: Oxybutynin Chloride (Oxybutynin 5 Mg Tab.Er) 5 mg PO BEDTIME [facility] Last Admin: 12/05/20 20:54 Dose: 5 mg Documented by: Pantoprazole Sodium (Pantoprazole 40 Mg Tab.Cr) 40 mg PO DAILY [facility] Last Admin: 12/06/20 07:46 Dose: 40 mg Documented by: Potassium Chloride (Potassium Chloride 10 Meq Tab.Er) 10 meq PO DAILY [facility] Last Admin: 12/06/20 07:46 Dose: 10 meq Documented by: Prednisone (Prednisone 20 Mg Tab) 40 mg PO DAILY [facility] Last Admin: 12/06/20 09:25 Dose: 40 mg Documented by: Tamsulosin HCl (Tamsulosin 0.4 Mg Cap.Er) 0.8 mg PO PCBREAKFAST [facility] Last Admin: 12/06/20 09:25 Dose: 0.8 mg Documented by: Discontinued Medications Azithromycin (Azithromycin 500 Mg Tab) 500 mg PO ONETIME ONE Stop: 12/06/20 08:01 Last Admin: 12/06/20 07:45 Dose: 500 mg Documented by: Prednisone (Prednisone 20 Mg Tab) 40 mg PO WITHBREAKFAST [facility] Tuberculin PPD (Tuberculin, Ppd 5 Units/0.1 Ml 1 Ml Mdv) 5 unit IDERM ONETIME ONE Stop: 12/05/20 14:53 Last Admin: 12/05/20 15:47 Dose: 5 unit Documented by: - Exam Quality Assessment: Reports: Urine Catheter General: Reports: Alert, Oriented HEENT: Reports: Pupils Equal, Pupils Reactive, EOMI, Mucous Membr. Moist/[place] Neck: Reports: Supple Lungs: Reports: Clear to Auscultation, Normal Respiratory Effort Cardiovascular: Reports: Regular Rate, Regular Rhythm GI/Abdominal Exam: Normal Bowel Sounds, Soft, Non-Tender, No Distention Back Exam: Reports: Normal Inspection Extremities: Normal Inspection Skin: Reports: Warm, Dry Psy/Mental Status: Reports: Alert *Q Meaningful Use (DIS) - VTE *Q VTE Mechanical Contraindications *Q: At Risk for Falls
[2020-12-06] MEDS ORDERED: Morphine Oral Concentrate 20 MG/ML 30 ML Bottle PO PRN (09:39)
[2020-12-06] MEDS: Albuterol/Ipratropium 3.0-0.5 MG/3 ML Neb Soln NEB PRN ×2 (17:23→20:40)
[2020-12-06] MEDS: Donepezil 5 MG Tab PO SCH (19:51)
[2020-12-06] MEDS: Oxybutynin 5 MG Tab.ER PO SCH (19:52)
[2020-12-06] MEDS: Morphine Solution 10 MG/5 ML ML 100 ML Bottle PO PRN (20:40)
[2020-12-07] MEDS: Tamsulosin 0.4 MG Cap.ER PO SCH (09:38)
[2020-12-07] MEDS: Citalopram 20 MG Tab PO SCH (09:38)
[2020-12-07] MEDS: Carbidopa/Levodopa 50-200 MG Tab.ER PO SCH (09:39)
[2020-12-07] MEDS: Pantoprazole 40 MG Tab.CR PO SCH (09:39)
[2020-12-07] MEDS: Potassium Chloride 10 MEQ Tab.ER PO SCH (09:41)
[2020-12-07] MEDS: Lisinopril 10 MG Tab PO SCH (09:41)
[2020-12-07] MEDS: Morphine Solution 10 MG/5 ML ML 100 ML Bottle PO PRN ×3 (09:55→23:37)
[2020-12-07] MEDS: Albuterol/Ipratropium 3.0-0.5 MG/3 ML Neb Soln NEB PRN ×2 (09:56→23:37)
[2020-12-07] MEDS: Levofloxacin 750 MG Tab PO SCH (13:42)
--- NOTE | 2020-12-07 19:36 | PCM.SN.2 ---
- Free Text/Narrative Note: I met with several members of this patient's family this afternoon. This included a daughter and son and grandchildren. They had met with the social work staff earlier to discuss the patient's progress. Essentially he has not made any progress and is now most interested in sleeping. He is taking small amounts of fluids but refusing solids. They have decided to place him on comfort care status. Together we discussed each of his medications and what types of care they were interested in continuing. At this time they will continue oxygen, morphine for comfort, and a course of oral antibiotics for a presumed pneumonia. These were started today and the rest of his medications were discontinued. Their questions were answered, support was offered.
[2020-12-08] MEDS: Morphine Solution 10 MG/5 ML ML 100 ML Bottle PO PRN ×4 (03:58→19:45)
[2020-12-09] MEDS: Morphine Solution 10 MG/5 ML ML 100 ML Bottle PO PRN ×4 (01:08→19:44)
--- NOTE | 2020-12-09 10:10 | PCM.SN.2 ---
- Free Text/Narrative Note: Per conversation with nursing staff patient is having significant bladder spasm, causing him discomfort and the sensation of having to urinate even though he has a catheter in place. After speaking with the patient and nursing staff we will try a trial oxybutynin at 2.5 mg twice daily. To be reassessed tomorrow 11/29.
[2020-12-09] MEDS: Levofloxacin 750 MG Tab PO SCH (13:52)
[2020-12-09] MEDS: Oxybutynin 5 MG Tab PO SCH (19:43)
[2020-12-10] MEDS: Morphine Solution 10 MG/5 ML ML 100 ML Bottle PO PRN ×4 (02:21→21:00)
[2020-12-10] MEDS: Oxybutynin 5 MG Tab PO SCH ×2 (08:30→19:56)
[2020-12-10] MEDS: Docusate Sodium 100 MG Cap PO PRN (09:12)
[2020-12-10] MEDS ORDERED: Glycerin Adult 2 GM Supp RECTAL ONE (18:03)
[2020-12-10] MEDS ORDERED: Bisacodyl 10 MG Supp RECTAL ONE (20:00)
[2020-12-11] MEDS: Oxybutynin 5 MG Tab PO SCH ×2 (08:34→19:25)
[2020-12-11] MEDS: Levofloxacin 750 MG Tab PO SCH (14:20)
[2020-12-11] MEDS: Morphine Solution 10 MG/5 ML ML 100 ML Bottle PO PRN ×2 (15:37→19:28)
[2020-12-11] MEDS ORDERED: Polyethylene Glycol 3350 Powder 17 GM Packet ONE (19:24)
[2020-12-11] MEDS: Polyethylene Glycol 3350 Powder 17 GM Packet PO SCH (19:25)
[2020-12-11] MEDS: Docusate Sodium 100 MG Cap PO PRN (19:26)
[2020-12-12] MEDS: Morphine Solution 10 MG/5 ML ML 100 ML Bottle PO PRN (03:00)
[2020-12-12] MEDS: Oxybutynin 5 MG Tab PO SCH ×2 (08:05→21:24)
[2020-12-12] MEDS: Polyethylene Glycol 3350 Powder 17 GM Packet PO SCH (08:05)
[2020-12-12] MEDS ORDERED: Magnesium Citrate Solution 296 ML Bottle PO ONE (09:41)
[2020-12-12] MEDS ORDERED: Magnesium Citrate Solution 296 ML Bottle ONE (13:39)
[2020-12-13] MEDS: Oxybutynin 5 MG Tab PO SCH ×2 (10:23→19:45)
[2020-12-13] MEDS: Polyethylene Glycol 3350 Powder 17 GM Packet PO SCH (10:23)
[2020-12-13] MEDS: Levofloxacin 750 MG Tab PO SCH (13:40)
[2020-12-13] MEDS: Morphine Solution 10 MG/5 ML ML 100 ML Bottle PO PRN (21:00)
[2020-12-14] MEDS: Polyethylene Glycol 3350 Powder 17 GM Packet PO SCH (09:04)
[2020-12-14] MEDS: Oxybutynin 5 MG Tab PO SCH ×2 (09:04→19:25)
[2020-12-14] MEDS: Morphine Oral Concentrate 20 MG/ML 30 ML Bottle PO PRN (19:25)
[2020-12-15] MEDS: Oxybutynin 5 MG Tab PO SCH ×2 (08:00→20:36)
[2020-12-15] MEDS: Polyethylene Glycol 3350 Powder 17 GM Packet PO SCH (08:00)
[2020-12-15] MEDS: Morphine Oral Concentrate 20 MG/ML 30 ML Bottle PO PRN (20:36)
[2020-12-16] MEDS: Oxybutynin 5 MG Tab PO SCH ×2 (08:25→22:32)
[2020-12-16] MEDS: Polyethylene Glycol 3350 Powder 17 GM Packet PO SCH (08:25)
[2020-12-16] MEDS: Morphine Oral Concentrate 20 MG/ML 30 ML Bottle PO PRN (22:33)
[2020-12-17] MEDS: Oxybutynin 5 MG Tab PO SCH ×2 (08:59→19:20)
[2020-12-17] MEDS: Polyethylene Glycol 3350 Powder 17 GM Packet PO SCH (08:59)
[2020-12-17] MEDS: Morphine Oral Concentrate 20 MG/ML 30 ML Bottle PO PRN (19:21)
--- NOTE | 2020-12-18 08:29 | PCM.PN ---
- General Info Date of Service: 12/18/20 Subjective Update: This is a 89yo M here for continue PT/OT for weakness. He has been able to get up and get to the bathroom since his [place] has been removed. He denies any pain or issues at this time. He does require some assistance with ambulation and uses a walker. Functional Status: Reports: Tolerating Diet, Ambulating, Urinating - Review of Systems General: Reports: Weakness HEENT: Reports: No Symptoms Pulmonary: Reports: No Symptoms Cardiovascular: Reports: No Symptoms Gastrointestinal: Reports: No Symptoms Genitourinary: Reports: Frequency, Incontinence Musculoskeletal: Reports: No Symptoms Skin: Reports: No Symptoms Neurological: Reports: No Symptoms - Patient Data Vitals - Most Recent: Last Vital Signs Temp 36.7 C 12/17/20 10:00 Pulse 68 12/17/20 10:00 Resp 18 12/17/20 10:00 BP 151/67 H 12/17/20 10:00 Pulse Ox 98 12/16/20 10:00 Weight - Most Recent: 76.385 kg I&O - Last 24 Hours: Intake & Output 12/17/20 12/18/20 12/18/20 22:59 06:59 14:59 Intake Total 1020 450 Output Total 700 250 Balance 320 200 Med Orders - Current: Current Medications Albuterol/Ipratropium (Albuterol/Ipratropium 3.0-0.5 Mg/3 Ml Neb Soln) 3 ml NEB Q4H PRN PRN Reason: Wheezing Last Admin: 12/07/20 23:37 Dose: 3 ml Documented by: Docusate Sodium (Docusate Sodium 100 Mg Cap) 100 mg PO BID PRN PRN Reason: Constipation Last Admin: 12/11/20 19:26 Dose: 100 mg Documented by: Morphine Sulfate (Morphine Oral Concentrate 20 Mg/Ml 30 Ml Bottle) 5 mg PO Q4H PRN PRN Reason: PAIN Last Admin: 12/17/20 19:21 Dose: 5 mg Documented by: Oxybutynin Chloride (Oxybutynin 5 Mg Tab) 2.5 mg PO BID [facility] Last Admin: 12/17/20 19:20 Dose: 2.5 mg Documented by: Polyethylene Glycol (Polyethylene Glycol 3350 Powder 17 Gm Packet) 17 gm PO DAILY [facility] Last Admin: 12/17/20 08:59 Dose: 17 gm Documented by: Discontinued Medications Acetaminophen (Acetaminophen 325 Mg Tab) 325 mg PO Q6H PRN PRN Reason: Pain Last Admin: 12/06/20 04:14 Dose: 325 mg Documented by: Azithromycin (Azithromycin 500 Mg Tab) 500 mg PO ONETIME ONE Stop: 12/06/20 08:01 Last Admin: 12/06/20 07:45 Dose: 500 mg Documented by: Bisacodyl (Bisacodyl 10 Mg Supp) 10 mg RECTAL ONETIME ONE Stop: 12/10/20 20:01 Last Admin: 12/10/20 20:00 Dose: 10 mg Documented by: Carbidopa/Levodopa (Carbidopa/Levodopa 50-200 Mg Tab.Er) 1 tab PO BID [facility] Last Admin: 12/07/20 09:39 Dose: 1 tab Documented by: Citalopram Hydrobromide (Citalopram 20 Mg Tab) 40 mg PO DAILY [facility] Last Admin: 12/07/20 09:38 Dose: 40 mg Documented by: Diphenhydramine HCl (Diphenhydramine 50 Mg Cap) 50 mg PO Q6H PRN PRN Reason: Sleep Last Admin: 12/06/20 04:16 Dose: 50 mg Documented by: Donepezil HCl (Donepezil 5 Mg Tab) 5 mg PO BEDTIME [facility] Last Admin: 12/06/20 19:51 Dose: 5 mg Documented by: Glycerin (Glycerin Adult 2 Gm Supp) 1 supp RECTAL ONETIME ONE Stop: 12/10/20 18:04 Last Admin: 12/11/20 20:06 Dose: Not Given Documented by: Levofloxacin (Levofloxacin 750 Mg Tab) 750 mg PO Q48H [facility] Stop: 12/13/20 23:55 Last Admin: 12/13/20 13:40 Dose: 750 mg Documented by: Lisinopril (Lisinopril 10 Mg Tab) 15 mg PO DAILY [facility] Last Admin: 12/07/20 09:41 Dose: 15 mg Documented by: Lorazepam (Lorazepam 1 Mg Tab) 1 mg PO Q6H PRN PRN Reason: Anxiety Last Admin: 12/06/20 21:23 Dose: 1 mg Documented by: Magnesium Citrate (Magnesium Citrate Solution 296 Ml Bottle) 296 ml PO ONETIME ONE Stop: 12/12/20 09:42 Last Admin: 12/12/20 13:38 Dose: 296 ml Documented by: Magnesium Citrate (Magnesium Citrate Solution 296 Ml Bottle) Confirm Administered Dose 296 ml .ROUTE .STK-MED ONE Stop: 12/12/20 13:40 Last Admin: 12/12/20 15:45 Dose: Not Given Documented by: Morphine Sulfate (Morphine Oral Concentrate 20 Mg/Ml 30 Ml Bottle) 10 mg PO Q2H PRN PRN Reason: Pain (moderate 4-6) Last Admin: 12/06/20 10:18 Dose: 10 mg Documented by: Morphine Sulfate (Morphine Solution 10 Mg/5 Ml Ml 100 Ml Bottle) 5 mg PO Q4H PRN PRN Reason: Pain (moderate 4-6) Last Admin: 12/13/20 21:00 Dose: 5 mg Documented by: Oxybutynin Chloride (Oxybutynin 5 Mg Tab.Er) 5 mg PO BEDTIME [facility] Last Admin: 12/06/20 19:52 Dose: 5 mg Documented by: Pantoprazole Sodium (Pantoprazole 40 Mg Tab.Cr) 40 mg PO DAILY [facility] Last Admin: 12/07/20 09:39 Dose: 40 mg Documented by: Polyethylene Glycol (Polyethylene Glycol 3350 Powder 17 Gm Packet) Confirm Administered Dose 17 gm .ROUTE .STK-MED ONE Stop: 12/11/20 19:25 Last Admin: 12/11/20 20:06 Dose: Not Given Documented by: Potassium Chloride (Potassium Chloride 10 Meq Tab.Er) 10 meq PO DAILY [facility] Last Admin: 12/07/20 09:41 Dose: 10 meq Documented by: Prednisone (Prednisone 20 Mg Tab) 40 mg PO WITHBREAKFAST [facility] Last Admin: 12/06/20 10:44 Dose: Not Given Documented by: Prednisone (Prednisone 20 Mg Tab) 40 mg PO DAILY [facility] Last Admin: 12/06/20 09:25 Dose: 40 mg Documented by: Tamsulosin HCl (Tamsulosin 0.4 Mg Cap.Er) 0.8 mg PO PCBREAKFAST [facility] Last Admin: 12/07/20 09:38 Dose: 0.8 mg Documented by: Tuberculin PPD (Tuberculin, Ppd 5 Units/0.1 Ml 1 Ml Mdv) 5 unit IDERM ONETIME ONE Stop: 12/05/20 14:53 Last Admin: 12/05/20 15:47 Dose: 5 unit Documented by: - Exam General: Alert, Oriented, Cooperative HEENT: Pupils Equal, Pupils Reactive, EOMI Neck: Supple Lungs: Clear to Auscultation, Normal Respiratory Effort Cardiovascular: Regular Rate, Regular Rhythm GI/Abdominal Exam: Normal Bowel Sounds, Soft, Non-Tender Back Exam: Normal Inspection Extremities: Normal Inspection Neurological: No New Focal Deficit Psy/Mental Status: Alert, Normal Affect, Normal Mood Sepsis Event Note - Evaluation Sepsis Screening Result: No Definite Risk - Problem List & Annotations (1) Urinary retention SNOMED Code(s): 581990582 Code(s): R33.9 - RETENTION OF URINE, UNSPECIFIED Status: Resolved Priority: High Current Visit: Yes (2) Urinary incontinence SNOMED Code(s): 147234224 Code(s): R32 - UNSPECIFIED URINARY INCONTINENCE Status: Suspected Priority: Medium Current Visit: Yes Qualifiers: Urinary Incontinence type: overflow incontinence Qualified Code(s): N39.490 - Overflow incontinence (3) Weakness SNOMED Code(s): 72162478 Code(s): R53.1 - WEAKNESS Status: Acute Priority: High Current Visit: Yes - Problem List Review Problem List Initiated/Reviewed/Updated: Yes - Plan Plan:: We will follow up PT/OT recommendations and discharge planning. Pending care conference on [facility] for further plan of care. No changes to medications at this time.
[2020-12-18] MEDS: Polyethylene Glycol 3350 Powder 17 GM Packet PO SCH (08:30)
[2020-12-18] MEDS: Oxybutynin 5 MG Tab PO SCH ×2 (08:30→19:20)
[2020-12-18] MEDS: Bumetanide 1 MG Tab PO SCH (15:26)
[2020-12-18] MEDS: traZODone 100 MG Tab PO SCH (19:21)
--- NOTE | 2020-12-19 07:20 | PN ---
DATE OF VISIT: 12/18/2020 He has been on swing bed status here at the hospital. 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 Nursing staff asked me to see him today for lower extremity edema. The patient is currently taking Bumex they tell me, but I am not seeing it on his medications; anyway upon evaluating the patient, I see that he does have approximately 2+ pitting edema of the lower legs and feet bilaterally. We will bump his diuretics, giving him Lasix. The dose will be determined once I find out if he is on Bumex, but we will increase it for about 4 days. The patient is not having any shortness of breath or coughing issues and otherwise states that he is feeling fine. CRS/MODL /[id number]
[2020-12-19] MEDS: Oxybutynin 5 MG Tab PO SCH ×2 (10:05→20:08)
[2020-12-19] MEDS: Polyethylene Glycol 3350 Powder 17 GM Packet PO SCH (10:05)
[2020-12-19] MEDS: Bumetanide 1 MG Tab PO SCH (10:10)
[2020-12-19] MEDS: Acetaminophen/HYDROcodone 325-5 MG Tab PO PRN ×2 (11:15→20:12)
--- NOTE | 2020-12-19 14:40 | CR ---
DATE OF SERVICE: 12/19/2020 CLINICAL DATA: FALL Right elbow: No acute fracture or dislocation. No joint effusion. There is a small bony exostosis protruding from the distal humeral diaphysis anteriorly. 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 No lytic or blastic bone lesions MTDD
--- NOTE | 2020-12-19 14:42 | CR ---
DATE OF SERVICE: 12/19/2020 CLINICAL DATA: FALL Right shoulder: No priors. 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 The there is marked narrowing of the subacromial space consistent with a chronic rotator cuff tendon tear. No acute abnormalities. No lytic or blastic bone lesions. MTDD
--- NOTE | 2020-12-19 14:43 | CT ---
DATE OF SERVICE: 12/19/2020 CLINICAL DATA: FALL Unenhanced brain CT: The multi slice acquisition through the brain without IV contrast was performed. No priors. There is diffuse atrophy. There are periventricular lucencies bilaterally consistent with small vessel ischemic change. There is a 3 mm calcification within the brain parenchyma anterior to the frontal horn of the left lateral ventricle. Probably related to prior infection or trauma. No masses. No intracranial hemorrhage. No evidence of acute or subacute infarct. No osseous abnormalities. Impression: No acute abnormalities MTDD
[2020-12-19] MEDS: traZODone 100 MG Tab PO SCH (20:08)
[2020-12-20] MEDS: Tamsulosin 0.4 MG Cap.ER PO SCH (09:09)
[2020-12-20] MEDS: Oxybutynin 5 MG Tab PO SCH ×2 (09:09→19:25)
[2020-12-20] MEDS: Bumetanide 1 MG Tab PO SCH (09:10)
[2020-12-20] MEDS: Polyethylene Glycol 3350 Powder 17 GM Packet PO SCH (09:10)
[2020-12-20] MEDS: Sulfamethoxazole/Trimethoprim 800-160 MG Tab PO SCH ×2 (12:38→19:25)
[2020-12-20] MEDS: Bisacodyl 10 MG Supp RECTAL PRN (13:54)
[2020-12-20] MEDS: traZODone 100 MG Tab PO SCH (19:24)
[2020-12-21] MEDS: Polyethylene Glycol 3350 Powder 17 GM Packet PO SCH (11:01)
[2020-12-21] MEDS: Sulfamethoxazole/Trimethoprim 800-160 MG Tab PO SCH ×2 (11:01→19:27)
[2020-12-21] MEDS: Tamsulosin 0.4 MG Cap.ER PO SCH (11:01)
[2020-12-21] MEDS: Oxybutynin 5 MG Tab PO SCH ×2 (11:01→19:26)
[2020-12-21] MEDS: Bisacodyl 10 MG Supp RECTAL PRN (14:53)
[2020-12-21] MEDS: Docusate Sodium 100 MG Cap PO PRN (14:53)
[2020-12-21] MEDS: traZODone 100 MG Tab PO SCH (19:27)
[2020-12-22] MEDS ORDERED: Magnesium Citrate Solution 296 ML Bottle PO ONE (09:31)
[2020-12-22] MEDS ORDERED: Magnesium Citrate Solution 296 ML Bottle ONE (12:28)
[2020-12-22] MEDS: Tamsulosin 0.4 MG Cap.ER PO SCH (12:45)
[2020-12-22] MEDS: Polyethylene Glycol 3350 Powder 17 GM Packet PO SCH (12:45)
[2020-12-22] MEDS: Oxybutynin 5 MG Tab PO SCH ×2 (12:45→20:38)
[2020-12-22] MEDS: Sulfamethoxazole/Trimethoprim 800-160 MG Tab PO SCH ×2 (12:45→20:40)
[2020-12-22] MEDS: Acetaminophen/HYDROcodone 325-5 MG Tab PO PRN ×2 (15:29→20:53)
[2020-12-22] MEDS: traZODone 100 MG Tab PO SCH (20:39)
[2020-12-23] MEDS: Docusate Sodium 100 MG Cap PO SCH ×2 (07:28→19:11)
[2020-12-23] MEDS: Oxybutynin 5 MG Tab PO SCH ×2 (07:28→19:11)
[2020-12-23] MEDS: Sulfamethoxazole/Trimethoprim 800-160 MG Tab PO SCH ×2 (07:28→19:11)
[2020-12-23] MEDS: Acetaminophen/HYDROcodone 325-5 MG Tab PO PRN ×3 (07:29→19:12)
[2020-12-23] MEDS: Polyethylene Glycol 3350 Powder 17 GM Packet PO SCH (07:30)
[2020-12-23] MEDS: Tamsulosin 0.4 MG Cap.ER PO SCH ×2 (07:30→11:49)
[2020-12-23] MEDS: traZODone 100 MG Tab PO SCH (19:11)
[2020-12-24] MEDS: Acetaminophen/HYDROcodone 325-5 MG Tab PO PRN (11:10)
[2020-12-24] MEDS: Polyethylene Glycol 3350 Powder 17 GM Packet PO SCH (11:10)
[2020-12-24] MEDS: Docusate Sodium 100 MG Cap PO SCH ×2 (11:10→19:21)
[2020-12-24] MEDS: Oxybutynin 5 MG Tab PO SCH ×2 (11:10→19:21)
[2020-12-24] MEDS: Sulfamethoxazole/Trimethoprim 800-160 MG Tab PO SCH ×2 (11:10→19:21)
[2020-12-24] MEDS: Tamsulosin 0.4 MG Cap.ER PO SCH (11:10)
[2020-12-24] MEDS: traZODone 100 MG Tab PO SCH (19:22)
--- NOTE | 2020-12-25 08:40 | PCM.PN ---
- General Info Date of Service: 12/25/20 Subjective Update: Patient has not been able to void without straight cath. He has been stable with his mobility and transfers. He notes pain of the right side from his fall but continued pain of the right abdominal area. He has healing bruises of the right elbow and right abdomen. Functional Status: Reports: Tolerating Diet, Other (increased pain of the right abdomen at bruised site) - Review of Systems General: Reports: Weakness HEENT: Reports: No Symptoms Pulmonary: Reports: No Symptoms Cardiovascular: Reports: No Symptoms Gastrointestinal: Reports: Abdominal Pain Genitourinary: Reports: Retention Skin: Reports: Bruising (from fall at right side, elbow and abdomen) Neurological: Reports: Weakness - Patient Data Vitals - Most Recent: Last Vital Signs Temp 36.6 C 12/25/20 08:06 Pulse 73 12/25/20 08:06 Resp 15 12/25/20 08:06 BP 134/68 12/25/20 08:06 Pulse Ox 98 12/25/20 08:06 Weight - Most Recent: 76.521 kg I&O - Last 24 Hours: Intake & Output 12/24/20 12/25/20 12/25/20 22:59 06:59 14:59 Intake Total 600 580 Output Total 1150 500 Balance -550 80 Med Orders - Current: Current Medications Hydrocodone Bitart/Acetaminophen (Acetaminophen/Hydrocodone 325-5 Mg Tab) 1 tab PO Q4H PRN PRN Reason: Pain Last Admin: 12/24/20 11:10 Dose: 1 tab Documented by: Albuterol/Ipratropium (Albuterol/Ipratropium 3.0-0.5 Mg/3 Ml Neb Soln) 3 ml NEB Q4H PRN PRN Reason: Wheezing Last Admin: 12/07/20 23:37 Dose: 3 ml Documented by: Bisacodyl (Bisacodyl 10 Mg Supp) 10 mg RECTAL DAILY PRN PRN Reason: Constipation Last Admin: 12/21/20 14:53 Dose: 10 mg Documented by: Docusate Sodium (Docusate Sodium 100 Mg Cap) 100 mg PO BID [facility] Last Admin: 12/24/20 19:21 Dose: 100 mg Documented by: Oxybutynin Chloride (Oxybutynin 5 Mg Tab) 2.5 mg PO BID [facility] Last Admin: 12/24/20 19:21 Dose: 2.5 mg Documented by: Polyethylene Glycol (Polyethylene Glycol 3350 Powder 17 Gm Packet) 17 gm PO DAILY [facility] Last Admin: 12/24/20 11:10 Dose: 17 gm Documented by: Tamsulosin HCl (Tamsulosin 0.4 Mg Cap.Er) 0.4 mg PO PCBREAKFAST [facility] Last Admin: 12/24/20 11:10 Dose: 0.4 mg Documented by: Trazodone HCl (Trazodone 100 Mg Tab) 50 mg PO BEDTIME [facility] Last Admin: 12/24/20 19:22 Dose: 50 mg Documented by: Trimethoprim/Sulfamethoxazole (Sulfamethoxazole/Trimethoprim 800-160 Mg Tab) 1 tab PO BID [facility] Stop: 12/27/20 23:59 Last Admin: 12/24/20 19:21 Dose: 1 tab Documented by: Discontinued Medications Acetaminophen (Acetaminophen 325 Mg Tab) 325 mg PO Q6H PRN PRN Reason: Pain Last Admin: 12/06/20 04:14 Dose: 325 mg Documented by: Azithromycin (Azithromycin 500 Mg Tab) 500 mg PO ONETIME ONE Stop: 12/06/20 08:01 Last Admin: 12/06/20 07:45 Dose: 500 mg Documented by: Bisacodyl (Bisacodyl 10 Mg Supp) 10 mg RECTAL ONETIME ONE Stop: 12/10/20 20:01 Last Admin: 12/10/20 20:00 Dose: 10 mg Documented by: Bumetanide (Bumetanide 1 Mg Tab) 1 mg PO DAILY [facility] Stop: 12/21/20 23:59 Last Admin: 12/20/20 09:10 Dose: Not Given Documented by: Carbidopa/Levodopa (Carbidopa/Levodopa 50-200 Mg Tab.Er) 1 tab PO BID [facility] Last Admin: 12/07/20 09:39 Dose: 1 tab Documented by: Citalopram Hydrobromide (Citalopram 20 Mg Tab) 40 mg PO DAILY [facility] Last Admin: 12/07/20 09:38 Dose: 40 mg Documented by: Diphenhydramine HCl (Diphenhydramine 50 Mg Cap) 50 mg PO Q6H PRN PRN Reason: Sleep Last Admin: 12/06/20 04:16 Dose: 50 mg Documented by: Docusate Sodium (Docusate Sodium 100 Mg Cap) 100 mg PO BID PRN PRN Reason: Constipation Last Admin: 12/21/20 14:53 Dose: 100 mg Documented by: Donepezil HCl (Donepezil 5 Mg Tab) 5 mg PO BEDTIME [facility] Last Admin: 12/06/20 19:51 Dose: 5 mg Documented by: Glycerin (Glycerin Adult 2 Gm Supp) 1 supp RECTAL ONETIME ONE Stop: 12/10/20 18:04 Last Admin: 12/11/20 20:06 Dose: Not Given Documented by: Levofloxacin (Levofloxacin 750 Mg Tab) 750 mg PO Q48H [facility] Stop: 12/13/20 23:55 Last Admin: 12/13/20 13:40 Dose: 750 mg Documented by: Lisinopril (Lisinopril 10 Mg Tab) 15 mg PO DAILY [facility] Last Admin: 12/07/20 09:41 Dose: 15 mg Documented by: Lorazepam (Lorazepam 1 Mg Tab) 1 mg PO Q6H PRN PRN Reason: Anxiety Last Admin: 12/06/20 21:23 Dose: 1 mg Documented by: Magnesium Citrate (Magnesium Citrate Solution 296 Ml Bottle) 296 ml PO ONETIME ONE Stop: 12/12/20 09:42 Last Admin: 12/12/20 13:38 Dose: 296 ml Documented by: Magnesium Citrate (Magnesium Citrate Solution 296 Ml Bottle) Confirm Administered Dose 296 ml .ROUTE .STK-MED ONE Stop: 12/12/20 13:40 Last Admin: 12/12/20 15:45 Dose: Not Given Documented by: Magnesium Citrate (Magnesium Citrate Solution 296 Ml Bottle) 296 ml PO ONETIME ONE Stop: 12/22/20 09:32 Last Admin: 12/22/20 12:45 Dose: 296 ml Documented by: Magnesium Citrate (Magnesium Citrate Solution 296 Ml Bottle) Confirm Administered Dose 296 ml .ROUTE .STK-MED ONE Stop: 12/22/20 12:29 Last Admin: 12/22/20 12:46 Dose: Not Given Documented by: Morphine Sulfate (Morphine Oral Concentrate 20 Mg/Ml 30 Ml Bottle) 10 mg PO Q2H PRN PRN Reason: Pain (moderate 4-6) Last Admin: 12/06/20 10:18 Dose: 10 mg Documented by: Morphine Sulfate (Morphine Solution 10 Mg/5 Ml Ml 100 Ml Bottle) 5 mg PO Q4H PRN PRN Reason: Pain (moderate 4-6) Last Admin: 12/13/20 21:00 Dose: 5 mg Documented by: Morphine Sulfate (Morphine Oral Concentrate 20 Mg/Ml 30 Ml Bottle) 5 mg PO Q4H PRN PRN Reason: PAIN Last Admin: 12/17/20 19:21 Dose: 5 mg Documented by: Oxybutynin Chloride (Oxybutynin 5 Mg Tab.Er) 5 mg PO BEDTIME [facility] Last Admin: 12/06/20 19:52 Dose: 5 mg Documented by: Pantoprazole Sodium (Pantoprazole 40 Mg Tab.Cr) 40 mg PO DAILY [facility] Last Admin: 12/07/20 09:39 Dose: 40 mg Documented by: Polyethylene Glycol (Polyethylene Glycol 3350 Powder 17 Gm Packet) Confirm Administered Dose 17 gm .ROUTE .STK-MED ONE Stop: 12/11/20 19:25 Last Admin: 12/11/20 20:06 Dose: Not Given Documented by: Potassium Chloride (Potassium Chloride 10 Meq Tab.Er) 10 meq PO DAILY [facility] Last Admin: 12/07/20 09:41 Dose: 10 meq Documented by: Prednisone (Prednisone 20 Mg Tab) 40 mg PO WITHBREAKFAST [facility] Last Admin: 12/06/20 10:44 Dose: Not Given Documented by: Prednisone (Prednisone 20 Mg Tab) 40 mg PO DAILY [facility] Last Admin: 12/06/20 09:25 Dose: 40 mg Documented by: Tamsulosin HCl (Tamsulosin 0.4 Mg Cap.Er) 0.8 mg PO PCBREAKFAST [facility] Last Admin: 12/07/20 09:38 Dose: 0.8 mg Documented by: Tuberculin PPD (Tuberculin, Ppd 5 Units/0.1 Ml 1 Ml Mdv) 5 unit IDERM ONETIME ONE Stop: 12/05/20 14:53 Last Admin: 12/05/20 15:47 Dose: 5 unit Documented by: - Exam General: Alert, Cooperative HEENT: Pupils Equal, Pupils Reactive, EOMI Neck: Supple Lungs: Clear to Auscultation, Normal Respiratory Effort Cardiovascular: Regular Rate, Regular Rhythm GI/Abdominal Exam: Normal Bowel Sounds, Soft, Tender (right abdomen at and around bruising) Back Exam: Normal Inspection Extremities: Normal Inspection Sepsis Event Note - Evaluation Sepsis Screening Result: No Definite Risk - Focused Exam Vital Signs: Vital Signs Temp Pulse Resp BP Pulse Ox 12/25/20 08:06 36.6 C 73 15 134/68 98 - Problem List & Annotations (1) Urinary retention SNOMED Code(s): 974615991 Code(s): R33.9 - RETENTION OF URINE, UNSPECIFIED Status: Resolved Priority: High Current Visit: Yes (2) Urinary incontinence SNOMED Code(s): 999972537 Code(s): R32 - UNSPECIFIED URINARY INCONTINENCE Status: Suspected Priority: Medium Current Visit: Yes Qualifiers: Urinary Incontinence type: overflow incontinence Qualified Code(s): N39.490 - Overflow incontinence (3) Weakness SNOMED Code(s): 45008814 Code(s): R53.1 - WEAKNESS Status: Acute Priority: High Current Visit: Yes (4) Superficial bruising of abdominal wall SNOMED Code(s): 21405447 Code(s): S30.1XXA - CONTUSION OF ABDOMINAL WALL, INITIAL ENCOUNTER Status: Acute Priority: High Current Visit: Yes Qualifiers: Encounter type: sequela Qualified Code(s): S30.1XXS - Contusion of abdominal wall, sequela Annotation/Comment:: from recent fall -obtaining CT abd/pelv - Problem List Review Problem List Initiated/Reviewed/Updated: Yes - Plan Plan:: We will follow up PT/OT recommendations and discharge planning. Pending care conference on for further plan of care. No changes to medications at this time. 12/25/20 Continue current PT/OT. Patient requiring straight cath at this time. We will try to continue bladder training. F/u CT abd/pel.
--- NOTE | 2020-12-25 11:57 | CT ---
DATE OF SERVICE: 12/25/2020 CLINICAL DATA: Right abdominal pain Unenhanced abdomen and pelvic CT: Multi slice acquisition through the abdomen and pelvis without IV or oral contrast was performed. Axial images and sagittal and coronal reformations are reviewed. Motion artifact significantly degrades study quality. No priors. The heart size is normal. There is calcification in the region of the mitral valve annulus. There is a moderate sized hiatal hernia. There are atelectatic changes in the left lower lung. There nodular densities in both lower lungs, left greater than right. The unenhanced liver appears normal. The gallbladder appears normal. The spleen appears normal. The pancreas is atrophic, otherwise unremarkable. The right and left adrenals appear normal. There is atrophy of both kidneys. No nephrocalcinosis or nephrolithiasis. No hydronephrosis or hydroureter. The bladder is partially fluid filled. It appears normal. There are multiple metallic densities within the prostate. No evidence of appendicitis. There is a moderate amount of stool noted within the cecum, ascending colon, and transverse colon. There also scattered air-fluid levels within the transverse colon. Colitis should be considered. There are scattered air-fluid levels within the transverse colon. Colitis should be considered. There is diverticulosis of the descending and sigmoid colon. No evidence of diverticulitis. No free air. No free fluid. No dilated loops of bowel. No adenopathy. No aortic aneurysm. There are bilateral fat containing inguinal hernias. There is a fat containing umbilical hernia. 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 There is slight retrolisthesis of L 2 on L3. No other significant findings. Thank you for allowing us to participate in the care of your patient. [facility]Jose J
[2020-12-25] MEDS: Polyethylene Glycol 3350 Powder 17 GM Packet PO SCH (12:05)
[2020-12-25] MEDS: Oxybutynin 5 MG Tab PO SCH ×2 (12:06→19:45)
[2020-12-25] MEDS: Sulfamethoxazole/Trimethoprim 800-160 MG Tab PO SCH ×2 (12:06→19:44)
[2020-12-25] MEDS: Tamsulosin 0.4 MG Cap.ER PO SCH (12:06)
[2020-12-25] MEDS: Docusate Sodium 100 MG Cap PO SCH ×2 (12:06→19:45)
[2020-12-25] MEDS: traZODone 100 MG Tab PO SCH (19:46)
[2020-12-26] MEDS: Polyethylene Glycol 3350 Powder 17 GM Packet PO SCH (08:22)
[2020-12-26] MEDS: Docusate Sodium 100 MG Cap PO SCH ×2 (08:22→19:55)
[2020-12-26] MEDS: Sulfamethoxazole/Trimethoprim 800-160 MG Tab PO SCH ×2 (08:22→19:55)
[2020-12-26] MEDS: Oxybutynin 5 MG Tab PO SCH ×2 (08:22→19:54)
[2020-12-26] MEDS: Tamsulosin 0.4 MG Cap.ER PO SCH (11:19)
[2020-12-26] MEDS: traZODone 100 MG Tab PO SCH (19:55)
[2020-12-26] MEDS: Acetaminophen/HYDROcodone 325-5 MG Tab PO PRN (19:56)
[2020-12-27] MEDS: Oxybutynin 5 MG Tab PO SCH ×2 (08:43→20:21)
[2020-12-27] MEDS: Sulfamethoxazole/Trimethoprim 800-160 MG Tab PO SCH ×2 (08:44→20:23)
[2020-12-27] MEDS: Polyethylene Glycol 3350 Powder 17 GM Packet PO SCH (08:44)
[2020-12-27] MEDS: Docusate Sodium 100 MG Cap PO SCH ×2 (08:44→20:22)
[2020-12-27] MEDS: Tamsulosin 0.4 MG Cap.ER PO SCH (13:46)
[2020-12-27] MEDS ORDERED: Tamsulosin 0.4 MG Cap.ER ONE (13:49)
[2020-12-27] MEDS: Acetaminophen/HYDROcodone 325-5 MG Tab PO PRN ×2 (14:38→22:20)
[2020-12-27] MEDS: traZODone 100 MG Tab PO SCH (20:23)
[2020-12-28] MEDS: Polyethylene Glycol 3350 Powder 17 GM Packet PO SCH (08:54)
[2020-12-28] MEDS: Docusate Sodium 100 MG Cap PO SCH ×2 (08:54→19:32)
[2020-12-28] MEDS: Oxybutynin 5 MG Tab PO SCH ×2 (08:54→19:31)
[2020-12-28] MEDS: Tamsulosin 0.4 MG Cap.ER PO SCH (09:02)
[2020-12-28] MEDS: traZODone 100 MG Tab PO SCH (19:31)
[2020-12-29] MEDS: Oxybutynin 5 MG Tab PO SCH (07:28)
[2020-12-29] MEDS: Docusate Sodium 100 MG Cap PO SCH (07:29)
[2020-12-29] MEDS: Polyethylene Glycol 3350 Powder 17 GM Packet PO SCH (07:29)
[2020-12-29 08:19] VITALS: BP 137/80; PULSE 85
[2020-12-29] MEDS: Tamsulosin 0.4 MG Cap.ER PO SCH (10:00)
== END 2020-12-29 14:45 | disposition home or self-care (01) | DRG 948 ==
LOC: LB.MS 12-05 10:23
PROVIDERS: ADMIT Nurse Practitioner; ATTEND Nurse Practitioner
DX: R53.1 Weakness (principal); H91.90 Unspecified hearing loss, unspecified ear; K21.9 Gastro-esophageal reflux disease without esophagitis; G30.9 Alzheimer's disease, unspecified; F02.80 Dementia in other diseases classified elsewhere, unspecified severity, without behavioral disturbance, psychotic disturbance, mood disturbance, and anxiety; G20 Parkinson's disease; F32.9 Major depressive disorder, single episode, unspecified; R33.9 Retention of urine, unspecified; N39.490 Overflow incontinence; N32.89 Other specified disorders of bladder; Z79.899 Other long term (current) drug therapy; S30.1XXS Contusion of abdominal wall, sequela; Z51.5 Encounter for palliative care
CPT/HCPCS: 51701; 51702; 51798; 70450; 73030-RT; 73070-RT; 74176; 81001; 86580; 87086; 87088; 87186; 97161-GP; 97165-GO; A9270-GY; J7512; J7620-GY

== ENCOUNTER 2021-01-12 12:58 | Inpatient (IN) | payer BC, MEDICARE ==
[2021-01-12] MEDS ORDERED: Non-Formulary Medication 1 Each PO SCH (20:00)
[2021-01-12] MEDS: OXYBUTYNIN 5 MG PO SCH (20:52)
[2021-01-12] MEDS: traZODone 50 MG Tab **OWN MED PO SCH (20:52)
[2021-01-13] MEDS: OXYBUTYNIN 5 MG PO SCH ×2 (08:57→21:12)
[2021-01-13] MEDS: Docusate Sodium 100 MG Cap PO SCH ×2 (12:23→21:11)
[2021-01-13] MEDS: traZODone 50 MG Tab **OWN MED PO SCH (21:12)
[2021-01-14] MEDS: OXYBUTYNIN 5 MG PO SCH ×2 (08:22→19:39)
[2021-01-14] MEDS: Docusate Sodium 100 MG Cap PO SCH ×2 (08:22→19:39)
[2021-01-14] MEDS: traZODone 50 MG Tab **OWN MED PO SCH (19:39)
[2021-01-15] MEDS: Docusate Sodium 100 MG Cap PO SCH ×2 (08:25→20:33)
[2021-01-15] MEDS: OXYBUTYNIN 5 MG PO SCH ×2 (08:25→20:33)
[2021-01-15] MEDS: traZODone 50 MG Tab **OWN MED PO SCH (20:33)
[2021-01-16] MEDS: Docusate Sodium 100 MG Cap PO SCH ×2 (07:57→19:51)
[2021-01-16] MEDS: OXYBUTYNIN 5 MG PO SCH ×2 (07:57→19:52)
[2021-01-16] MEDS: traZODone 50 MG Tab **OWN MED PO SCH (19:51)
[2021-01-17] MEDS: Docusate Sodium 100 MG Cap PO SCH ×2 (08:28→19:22)
[2021-01-17] MEDS: OXYBUTYNIN 5 MG PO SCH ×2 (08:29→19:21)
[2021-01-17] MEDS: traZODone 50 MG Tab **OWN MED PO SCH (19:21)
[2021-01-18] MEDS: Docusate Sodium 100 MG Cap PO SCH ×2 (07:23→20:16)
[2021-01-18] MEDS: OXYBUTYNIN 5 MG PO SCH ×2 (07:23→20:16)
[2021-01-18] MEDS: traZODone 50 MG Tab **OWN MED PO SCH (20:16)
[2021-01-19] MEDS: Docusate Sodium 100 MG Cap PO SCH (08:07)
[2021-01-19] MEDS: OXYBUTYNIN 5 MG PO SCH (08:08)
== END 2021-01-19 12:45 | disposition home or self-care (01) | DRG 951 ==
LOC: LB.MS 15:30
PROVIDERS: ADMIT Family Medicine; ATTEND Family Medicine
DX: Z75.5 Holiday relief care (principal)
CPT/HCPCS: A9270-GY

== ENCOUNTER 2021-09-14 15:31 | Emergency (ER) | payer MEDICARE ==
[2021-09-14] MEDS: Albuterol/Ipratropium 3.0-0.5 MG/3 ML Neb Soln NEB ONE (16:20)
[2021-09-14] MEDS: Albuterol/Ipratropium 3.0-0.5 MG/3 ML Neb Soln ONE (16:28)
[2021-09-14 16:55] LABS: ESTIMATED GFR 51 mL/min (>60)
[2021-09-14] MEDS: Acetaminophen 500 MG Tab PO ONE (17:10)
[2021-09-14] MEDS: Acetaminophen 500 MG Tab ONE (17:12)
[2021-09-14] MEDS ORDERED: Amoxicillin/Clavulanate K 875-125 MG Tab ONE (17:45)
[2021-09-14] MEDS ORDERED: Benzonatate 100 MG Cap ONE (17:45)
[2021-09-14] MEDS: Amoxicillin/Clavulanate K 875-125 MG Tab PO ONE (17:58)
[2021-09-14] MEDS: Benzonatate 100 MG Cap PO ONE (17:58)
[2021-09-14] MEDS: Amoxicillin/Clavulanate K 875-125 MG Tab ONE (18:09)
== END 2021-09-14 18:00 | disposition home or self-care (01) ==
LOC: LB.ED 15:31
DX: R50.9 Fever, unspecified (principal); R05.9 Cough, unspecified; K21.9 Gastro-esophageal reflux disease without esophagitis; Z20.822 Contact with and (suspected) exposure to COVID-19
CPT/HCPCS: 36415; 80053; 85025; 99283; A9270; U0002; 99282; J7620

== ENCOUNTER 2021-09-19 13:50 | Emergency (ER) | payer MEDICARE ==
[2021-09-19] MEDS ORDERED: cefTRIAXone 1 GM Vial IM ONE (14:41)
[2021-09-19] MEDS ORDERED: cefTRIAXone 1 GM Vial ONE (14:50)
== END 2021-09-19 15:15 | disposition home or self-care (01) ==
LOC: LB.ED 13:50
DX: L03.116 Cellulitis of left lower limb (principal); I10 Essential (primary) hypertension; K21.9 Gastro-esophageal reflux disease without esophagitis; Z79.899 Other long term (current) drug therapy; Z86.16 Personal history of COVID-19
CPT/HCPCS: 96372; 99282; 99283; J0696

== ENCOUNTER 2021-09-21 12:00 | Emergency (ER) | payer MEDICARE | END 2021-09-21 13:11 | disposition home or self-care (01) | LOC: LB.ED 12:00 | DX: M10.9 Gout, unspecified (principal); I10 Essential (primary) hypertension; G30.9 Alzheimer's disease, unspecified | CPT/HCPCS: 36415; 80048; 84550; 85651; 99282; 99283 ==

== ENCOUNTER 2021-10-17 11:08 | Inpatient (IN) | payer MEDICARE ==
[2021-10-17 11:53] LABS: ESTIMATED GFR 40 mL/min (>60)
[2021-10-17] MEDS: Furosemide 20 MG/2 ML VIAL IVPUSH SCH ×2 (19:35→22:45)
[2021-10-17] MEDS ORDERED: Furosemide 20 MG/2 ML VIAL ONE (19:37)
[2021-10-18] MEDS: Furosemide 20 MG/2 ML VIAL IVPUSH SCH (01:40)
[2021-10-18 07:23] VITALS: BP 120/69
[2021-10-18] MEDS ORDERED: Furosemide 40 MG/4 ML VIAL ONE (09:04)
[2021-10-18] MEDS ORDERED: Furosemide 20 MG/2 ML VIAL IVPUSH ONE (09:41)
[2021-10-18 12:05] VITALS: PULSE 93
== END 2021-10-18 14:07 | disposition home or self-care (01) | DRG 810 ==
LOC: LB.CLINIC 11:08 → LB.MS 12:20
PROVIDERS: ADMIT Family Medicine; ATTEND Emergency Medicine
PROC: 30233N1 Transfusion of Nonautologous Red Blood Cells into Peripheral Vein, Percutaneous Approach (ICD-10-PCS; principal; 2021-10-17)
DX: D61.89 Other specified aplastic anemias and other bone marrow failure syndromes (principal); G30.9 Alzheimer's disease, unspecified; F02.80 Dementia in other diseases classified elsewhere, unspecified severity, without behavioral disturbance, psychotic disturbance, mood disturbance, and anxiety; G20 Parkinson's disease; F32.A Depression, unspecified; I87.8 Other specified disorders of veins; Z20.822 Contact with and (suspected) exposure to COVID-19; I12.9 Hypertensive chronic kidney disease with stage 1 through stage 4 chronic kidney disease, or unspecified chronic kidney disease; R32 Unspecified urinary incontinence; N18.9 Chronic kidney disease, unspecified; Z79.899 Other long term (current) drug therapy; Z86.16 Personal history of COVID-19
CPT/HCPCS: 36415; 36430; 80048; 85025; 86850; 86900; 86901; 86920; 86922; J1940; P9016; U0002

== ENCOUNTER 2022-07-25 09:34 | Emergency (ER) | payer MEDICARE ==
[2022-07-25 12:00] VITALS: BP 171/80; PULSE 82
== END 2022-07-25 10:55 | disposition home or self-care (01) ==
LOC: SUPCPDRO 09:34 → LB.ED 09:34
DX: T83.038A Leakage of other urinary catheter, initial encounter (principal); I10 Essential (primary) hypertension; Z86.16 Personal history of COVID-19
CPT/HCPCS: 51702; 99282; 99283